=== PATIENT | female | born 1950 | race Native Hawaiian/Other Pacific Islander ===

== ENCOUNTER 2018-05-21 18:30 | Inpatient (IN) ==
[2018-05-21] MEDS ORDERED: TYLENOL PO ONE (19:00)
[2018-05-21] MEDS ORDERED: MORPHINE IV ONE (19:19)
[2018-05-21] MEDS ORDERED: ZOFRAN IV ONE (19:19)
[2018-05-21] MEDS ORDERED: NS 1,000 ML IV ONE ×3 (19:20→23:59)
[2018-05-21 19:21] LABS: BASO# 0.03 X1000 (0.0-0.2); BASO% 0.2 % (0.0-0.8); EOS# 0.01 X1000 (0.0-0.7); EOS% 0.1 % (0.0-10.0); HEMATOCRIT 37.4 % (37.0-47.0); HEMOGLOBIN 12.3 g/dL (12.0-16.0); IMM GRAN# 0.07 X1000 (0.0-0.04); IMM GRAN% 0.4 % (0.0-0.5); LYMPH# 1.75 X1000 (1.2-3.4); LYMPH% 8.8 % (20.5-51.1); MCH 27.2 PG (27-31); MCHC 32.9 g/dL (33-37); MCV 82.7 FL (81-99); MONO# 1.61 X1000 (0.11-0.59); MONO% 8.1 % (1.7-9.3); MPV 12.6 FL (7.4-10.4); NEUT# 16.32 X1000 (1.4-6.5); NEUT% 82.4 % (42.2-75.2); PLT 215 X1000 (130-400); RBC 4.52 XMIL (4.2-5.4); RDW 14.1 % (11.5-14.5); WBC 19.79 X1000 (4.8-10.8)
[2018-05-21 19:59] LABS: BILIRUBIN URINE NEGATIVE (NEGATIVE); BLOOD URINE 2+ (NEGATIVE); CLARITY CLEAR (CLEAR); COLOR YELLOW; KETONE URINE NEGATIVE (NEGATIVE); LEUKOCYTES URINE TRACE (NEGATIVE); NITRITE URINE NEGATIVE (NEGATIVE); PH URINE 6.5; UROBILINOGEN URINE NORMAL
[2018-05-21 20:01] LABS: URINE BACTERIA 1+ /HFP; URINE CAST NONE SEEN /LPF; URINE CRYSTAL NONE SEEN /HPF; URINE EPITHELIAL CELLS >10 /HPF (<10); URINE RBC <10 /HPF (<10); URINE SOURCE CLEAN CATCH; URINE WBC <10 /HPF (<10); URINE YEAST NONE SEEN /HPF
[2018-05-21 20:49] LABS: ALBUMIN 3.1 g/dL (3.5-5.0); CALCIUM 9.6 mg/dL (8.8-10.2); CREATININE 1.8 mg/dL (0.5-0.9); POTASSIUM 4.5 mmol/L (3.5-5.1); TOTAL BILIRUBIN 0.9 mg/dL (0.20-1.00); TOTAL PROTEIN 8.6 g/dL (6.3-8.3)
[2018-05-21] MEDS ORDERED: NS 1,000 ML IV SCH (23:45)
[2018-05-21] MEDS ORDERED: ZOFRAN IV PRN ×2 (23:54→23:58)
[2018-05-21] MEDS ORDERED: MORPHINE IV PRN (23:54)
[2018-05-21] MEDS ORDERED: ZOSYN 3.375 GM in NS 50 ML IV ONE (23:57)
[2018-05-21] MEDS ORDERED: TYLENOL PO PRN (23:57)
--- NOTE | 2018-05-22 00:04 | PROVIDER DOCUMENTATION ---
HPI-Abdominal Pain/GI Problem - General Chief Complaint: Abdominal Pain Stated Complaint: EXTREMITY PAIN Time Seen by Provider: 05/21/18 19:03 Source: patient Allergies/Adverse Reactions: Patient Allergies Allergy/AdvReac Type Severity Reaction Status Date / Time No Known Allergies Allergy Verified 05/21/18 20:18 Home Medications: Home Medication List Medication Instructions Recorded Confirmed Last Taken Type Docusate Sodium [Colace] 100 mg PO BID #60 capsule 09/23/14 05/21/18 Unknown Rx Insulin NPH Hum/Reg Insulin Hm 15 unit SQ DAILY 05/21/18 05/21/18 Unknown History [Novolin 70-30 100 Unit/ml Vial] Insulin NPH Hum/Reg Insulin Hm 18 unit SQ HS 05/21/18 05/21/18 Unknown History [Novolin 70-30 100 Unit/ml Vial] Lisinopril 20 mg PO DAILY 05/21/18 05/21/18 Unknown History - History of Present Illness-ABD Nature of Presenting Problems: Patient is a 68 yof who was sent by Dr. Dubois due to RLQ pain, fever, and leukocytosis. Pt states the pain and fever began 2 days ago. She denies n/v/d or any other symptoms and is non-toxic in appearance. Abdominal Pain Onset Location: reports: RLQ Pain Radiation: reports: no radiation Severity in ED: reports: moderate Onset/Duration: reports: 2 days ago Timing: reports: still present Activities at Onset: reports: none Modifying Factors: improves with: nothing Last BM: this morning Dark Stools Present?: reports: none noticed Rectal Bleeding: reports: none Rectal Pain: reports: none Recently seen or treated by another doctor?: Yes Review of Systems - Adult - REVIEW OF SYSTEMS - ADULT Constitutional: reports: fever Eyes: reports: no symptoms reported Ears, Nose, Mouth & Throat: reports: no symptoms reported Cardiovascular: reports: no symptoms reported Respiratory: reports: no symptoms reported Gastrointestinal: reports: abdominal pain. denies: diarrhea, nausea, vomiting Genitourinary: denies: dysuria, flank pain Musculoskeletal: reports: no symptoms reported Integumentary: reports: no symptoms reported Neurological: reports: no symptoms reported Psychiatric: reports: no symptoms reported Endocrine: reports: no symptoms reported Hematologic/Lymphatic: reports: no symptoms reported Allergic/Immunologic: reports: no symptoms reported All Other Systems: Reviewed and Negative Past History - Adult - PAST MEDICAL HISTORY-ADULT Review of Records: reports: Old Records Reviewed, Nursing Assessment Review, Medications Reviewed, Social history reviewed & non-contributory. Major Childhood Illnesses: reports: denies history Cardiovascular: reports: HTN Respiratory: reports: denies history Gastrointestinal: reports: denies history Obstetrical/Gynecological: reports: denies history Genitourinary: reports: ESRD Musculoskeletal: reports: denies history Neurological: reports: denies history Endocrine/Immune: reports: Diabetes, thyroid disorder Other Conditions: reports: denies history - PRIOR SURGERIES/PROCEDURES Surgical/Procedure History: reports: reviewed, not pertinent, cholecystectomy, C -section - IMMUNIZATION STATUS Childhood Immunizations: See Nurse Assessment Flu Vaccine: See Nurse Assessment - FAMILY HISTORY Family History: reviewed, not pertinent - SOCIAL HISTORY Smoking: non-smoker Physical Exam-General - PHYSICAL EXAM-ADULT Initial Vital Signs Reviewed: Yes - CONSTITUTIONAL General Appearance: alert, mild distress. negative: lethargic, slow to respond - EYES Eyes: pink conjunctivae - HEAD, EARS, NOSE, MOUTH & THROAT HENMT: normocephalic/atraumatic, moist mucous membranes - NECK Neck: non-tender, full range of motion, supple, normal inspection - RESPIRATORY Respiratory: chest non-tender, lungs clear, normal breath sounds, no pleuratic chest pain, no respiratory distress, no accessory muscle use - CARDIOVASCULAR Cardiovascular: normal peripheral pulses, regular rate, rhythm, no gallop, no murmur - GASTROINTESTINAL (ABDOMEN) Abdominal Exam: normal bowel sounds, soft, no organomegaly, tenderness (RLQ), McBurney's point tenderness. negative: distended, guarding, rigid, hernia, mass , hepatomegaly, spleenomegaly - MUSCULOSKELETAL Back Exam: normal inspection Extremity: normal range of motion, non-tender, normal gait, normal inspection - SKIN Integumentary: normal color, normal turgor, warm/dry. negative: cyanosis, diaphoresis, jaundice, mottled, pallor - NEUROLOGIC Neurologic: grossly normal, no motor/sensory deficits - PSYCHIATRIC Psych/Mental Status: normal mood/affect, normal thought content, normal thought process, oriented x 3 Progress - PLAN OF CARE/RESULTS Progress/Plan/Lab Results: Vital Signs - 8 hr 05/21/18 18:51 05/21/18 19:57 Temperature 100.7 F H 97.5 F L Pulse Rate 106 H 105 H Respiratory Rate 18 18 Blood Pressure 187/92 86/64 O2 Sat by Pulse Oximetry 96 93 L Laboratory Results - last 24 hr 05/21/18 05/21/18 05/21/18 19:04 19:10 19:10 WBC 19.79 H RBC 4.52 Hgb 12.3 Hct 37.4 MCV 82.7 MCH 27.2 MCHC 32.9 L RDW Std Deviation 14.1 Plt Count 215 MPV 12.6 H Immature Gran % (Auto) 0.4 Neut % (Auto) 82.4 H Lymph % (Auto) 8.8 L [place] % (Auto) 8.1 Eos % (Auto) 0.1 Baso % (Auto) 0.2 Immature Gran # (Auto) 0.07 H Neut # (Auto) 16.32 H Lymph # (Auto) 1.75 [place] # (Auto) 1.61 H Eos # (Auto) 0.01 Baso # (Auto) 0.03 Sodium 128 L Potassium 4.5 Chloride 93 L Carbon Dioxide 22 L Anion Gap 13 BUN 22 Creatinine 1.8 H Estimated GFR/1.73 m2 28 BUN/Creatinine Ratio 12 Glucose 249 H Calculated Osmolality 269 Calcium 9.6 Total Bilirubin 0.90 AST 234 H ALT 234 H Alkaline Phosphatase 162 H Total Protein 8.6 H Albumin 3.1 L Globulin 6.0 Albumin/Globulin Ratio 1.0 Urine Source CLEAN CATCH Urine Color YELLOW Urine Clarity CLEAR Urine pH 6.5 Ur Specific [place] 1.010 Urine Protein 3+(500 mg/dL) A Urine Ketones NEGATIVE Urine Blood 2+ A Urine Nitrite NEGATIVE Urine Bilirubin NEGATIVE Urine Urobilinogen NORMAL Urine Microscopic RBC <10 Urine WBC TRACE A Urine Microscopic WBC <10 Ur Epithelial Cells >10 A Urine Crystals NONE SEEN Urine Bacteria 1+ Urine Casts NONE SEEN Urine Yeast NONE SEEN Urine Glucose 1+(100 mg/dL) A Orders Category Date Time Status Admit - [facility] Routine AdmDCTranf 05/21/18 23:54 Active Activity - Bed Rest with BRP ORDERED Care 05/21/18 23:54 Active Resuscitation Status Routine Care 05/21/18 23:54 Ordered Vital Signs Order ROUTINE Care 05/21/18 23:54 Active NPO Diet 05/21/18 23:[address] ABDOMEN/PELVIS W/O CONTRAST [CT] Stat Exams 05/21/18 21:25 Taken US ABDOMEN-COMPLETE [US] Stat Exams 05/21/18 23:54 Ordered BLOOD CULTURE [BLDCUL] Stat Lab 05/21/18 23:56 Uncollected CBC WITH DIFF [HEME] Stat Lab 05/21/18 19:10 Completed COMPREHENSIVE METABOLIC PANEL [CHEM] Stat Lab 05/21/18 19:[address] W/POSS RFLX CULT [URINALYSIS] Stat Lab 05/21/18 19:04 Completed URINE CULTURE [RM] Routine Lab 05/21/18 20:01 Received 0.9% Sodium Chloride Inj [Ns] 1,000 ml Med 05/21/18 23:54 Active IV 100 mls/hr 0.9% Sodium Chloride Inj [Ns] 1,000 ml Med 05/21/18 23:45 Active IV 125 mls/hr 0.9% Sodium Chloride Inj [Ns] 1,000 ml Med 05/21/18 19:20 Discontinued IV 999 mls/hr 0.9% Sodium Chloride Inj [Ns] 1,000 ml Med 05/21/18 23:59 Active IV 999 mls/hr Acetaminophen [Tylenol] Med 05/21/18 19:00 Discontinued 1,000 mg PO NOW ONE Acetaminophen [Tylenol] Med 05/21/18 23:57 Active 650 mg PO Q4H PRN PRN Insulin Lispro (Griffith) [Humalog (Griffith)] Med 05/22/18 07:00 Active See Protocol SUBQ 0700,1100,1600,2100 Morphine Med 05/21/18 19:19 Discontinued 4 mg IV NOW ONE Morphine Med 05/21/18 23:54 Active 4 mg IV Q3H PRN PRN Ondansetron [Zofran] Med 05/21/18 19:19 Discontinued 4 mg IV NOW ONE Ondansetron [Zofran] Med 05/21/18 23:58 Active 4 mg IV Q4H PRN PRN Ondansetron [Zofran] Med 05/21/18 23:54 Active 4 mg IV Q6H PRN PRN Piperacillin/Tazobactam [Zosyn] 3.375 gm Med 05/21/18 23:57 Stop Req 0.9% Sodium Chloride Inj [Ns] 50 ml IV NOW Piperacillin/Tazobactam [Zosyn] 3.375 gm Med 05/21/18 23:45 Active 0.9% Sodium Chloride Inj [Ns] 50 ml IV Q6H Transfer/Admit Order [TRANSFER] Routine Transfer 05/22/18 00:[address] Dumas and discussed pt case- md states to transfer to [facility] and he will see her in the am. Also states to admit to [facility] for medical management. Spoke with Dr. Haines regarding pt case and admission- md accepted admission and states he will place orders. Pt aware of this plan and is in agreement. NAD noted at this time. Result Diagrams: 05/21/18 19:10 05/21/18 19:10 Departure - Departure Date of Disposition Decision: 05/22/18 Time of Disposition Decision: 00:21 DIAGNOSIS: Abdominal pain Qualifiers: Abdominal location: right lower quadrant Qualified Code(s): R10.31 - Right lower quadrant pain Leukocytosis Qualifiers: Leukocytosis type: other Qualified Code(s): D72.828 - Other elevated white blood cell count Disposition: ADMITTED INPATIENT 09 Certified Medical Emergency: Emergent Condition: Stable Referrals and Follow-Ups: None,PCP [Primary Care Provider] - - Critical Care Note This patient required my direct & personal management of CC.: No Attestation - Physician/ YUE Attestation Patient care was provided by Advanced Practice Provider:: Yes Advanced Practice Provider:: Patrizia Reddy Advanced Practice Provider documentation review:: The Mid-level provider documentation, treatment plan and medical decision making was reviewed by the physician who agrees with all treatment and medical decision making by the MLP. The physician spent face to face time with patient:: No Advanced Practice Provider documentation review:: Supervising physician onsite and consulted in the evaluation and care of this patient. The physician did not have a face to face encounter with the patient.
[2018-05-22] MEDS: ZOSYN 3.375 GM in NS 50 ML IV SCH ×2 (00:30→06:22)
[2018-05-22 05:23] LABS: HEMOGLOBIN A1C 8.7 % (4.8-6.0)
[2018-05-22] MEDS ORDERED: APRESOLINE IV PRN (05:23)
[2018-05-22 06:01] LABS: BASO# 0.01 X1000 (0.0-0.2); BASO% 0.1 % (0.0-0.8); EOS# 0.01 X1000 (0.0-0.7); EOS% 0.1 % (0.0-10.0); HEMATOCRIT 33.1 % (37.0-47.0); HEMOGLOBIN 10.8 g/dL (12.0-16.0); IMM GRAN# 0.02 X1000 (0.0-0.04); IMM GRAN% 0.2 % (0.0-0.5); LYMPH# 0.69 X1000 (1.2-3.4); LYMPH% 6.7 % (20.5-51.1); MCH 27.1 PG (27-31); MCHC 32.6 g/dL (33-37); MONO# 0.25 X1000 (0.11-0.59); MONO% 2.4 % (1.7-9.3); MPV 13.2 FL (7.4-10.4); NEUT# 9.39 X1000 (1.4-6.5); NEUT% 90.5 % (42.2-75.2); PLT 136 X1000 (130-400); RBC 3.99 XMIL (4.2-5.4); RDW 13.9 % (11.5-14.5); WBC 10.37 X1000 (4.8-10.8)
--- NOTE | 2018-05-22 06:18 | HISTORY AND PHYSICAL ---
PRIMARY CARE PHYSICIAN: Dr. Dubois.t CHIEF COMPLAINT: Abdominal pain. HISTORY OF PRESENT ILLNESS: This is a 68-year-old female with a past medical history diabetes and hypertension, who was sent by her primary care doctor Dr. Dubois because of abdominal pain and fever. She denies any chest pain, shortness of breath, fever. The patient reports that during the last 3 days she is having fevers, she did not check it but she was taking Tylenol for it, and also abdominal pain in the right lower quadrant that was getting worse progressively. That pain is intermittent, when she is having pain it is 7-8/10 in intensity. There has not been any alleviating or aggravating factors. The pain is colicky in nature. The patient reports not feeling sick. No vomiting. No change in appetite. The patient also denies any dysuria. Dr. Dumas from General Surgery has been notified in the ER because apparently the CT of the abdomen showed possible short segment of the appendix may be present, so we were suspecting acute appendicitis and that is the reason why this patient has been transferred over here. Upon my examination this patient is not looking sick and not in pain at this time. PAST MEDICAL HISTORY: 1. Diabetes mellitus type 2 diagnosed approximately 10 years ago. The patient is on insulin. 2. Hypertension. PAST SURGICAL HISTORY: 1. 35 years ago. 2. Episode of acute renal failure. 3. Gallbladder removed 3 years ago. 4. Ear surgery several years ago. ALLERGIES: No known drug allergies. SOCIAL HISTORY: She denies drinking alcohol, smoking tobacco, or using illicit drugs. The patient lives with , son and his . REVIEW OF SYSTEMS: Eleven systems were reviewed and all symptoms are related to H and P. PHYSICAL EXAMINATION: VITAL SIGNS: Temperature 97.4 degrees, heart rate 62, respiratory rate 20, blood pressure 150/69, O2 saturation 97% on room air. GENERAL: This is a 68-year-old female lying in bed in no acute distress. HEENT: Head is normocephalic and atraumatic. Pupils are equal, round, and reactive to light and accommodation. Normal conjunctivae. Anicteric NECK: No JVD noted. No carotid bruits. No lymphadenopathy. No thyromegaly. CARDIOVASCULAR: S1 and S2 heard. No murmurs, gallops, or rubs. Regular rate and rhythm. RESPIRATORY: Clear bilaterally to auscultation. No work of breathing or using accessory muscles. ABDOMEN: Soft. Mildly tender to palpation in the right lower quadrant. There is no signs of peritoneal irritation. No organomegaly noted. EXTREMITIES: No clubbing, cyanosis, or edema. Peripheral pulses present in both legs. NEUROLOGICAL: The patient is alert and oriented x3. Moves all 4 extremities. LABORATORY DATA: White cell count 19.79, with normal hemoglobin 12.3, platelets 215,000. Sodium 128, creatinine 1.8, AST 234, ALT 234, alkaline phosphatase 162. Urinalysis noted with glucose but no nitrates. ASSESSMENT AND PLAN: 1. Abdominal pain. That is the reason why this patient has been transferred over here. The CT of the abdomen showed possible appendicitis although we are not completely sure and that is why we have consulted Dr. Dumas and we are awaiting his evaluation. 2. Diabetes mellitus type 2. We are going to check hemoglobin A1c. We are going to hold her insulin, she uses insulin NPH Novolin 70/30 while she is here. 3. Hypertension. Blood pressure is elevated and she is on lisinopril, at this point I will change her medications to Amlodipine 5 mg p.o. b.i.d. and we ill place her on hydralazine p.r.n. We will continue to monitor vitals every 6 hours. 4. Chronic kidney disease. We have checked that in 2013 she had an episode of acute renal failure. Last creatinine checked at that time was 3.5. I do not know how her creatinine has been in the office, but we have 1.8 today, and I think this is chronic. We will continue to monitor her basic metabolic panel daily. 5. Hyponatremia. We have noticed that the patient had been hyponatremic also in 2013, I do not know her baseline sodium. We are going to use urine studies and we will check osmolality, and we will continue checking BMP daily. We may need to consult Nephrology down the road, but at this point we will continue to monitor BMP daily. 6. Transaminitis. At this point the source of this problem is unclear to me. We are going to consult Gastroenterology. 7. Recommendations to follow according to the clinical situation of the patient. cc: Charles Castellanos MD
[2018-05-22] MEDS ORDERED: MORPHINE IV PRN ×2 (06:28→17:50)
[2018-05-22] MEDS ORDERED: TYLENOL PO PRN (06:29)
[2018-05-22] MEDS ORDERED: ZOFRAN IV PRN (06:29)
--- NOTE | 2018-05-22 06:40 | Diag Imaging Result Doc PS360 ---
CT ABDOMEN/PELVIS W/O CONTRAST - 05/21/2018 INDICATION: RLQ pain/tenderness COMPARISON: 03/19/2017 FINDINGS: There are cholecystectomy clips. Stable severe left renal atrophy. No radiodense renal stones. No hydronephrosis or hydroureter. Stable phlebolith near the left UVJ. No bowel obstruction or inflammation. Appendix is not clearly visible. Urinary bladder, uterus, ovaries, and rectum are normal. There are moderate degenerative changes of the spine. No acute or suspicious bony lesion. IMPRESSION: No acute disease or change from prior. This exam was performed using automated exposure control, adjustment of mA or kV according to patient size, and/or use of iterative reconstruction technique Electronically signed by Markos Bravo 05/22/2018 6:37 AM
[2018-05-22 06:43] LABS: LYMPHS 9 % (21-51); MONO 3 % (1-9); SEGS 88 % (42-75)
[2018-05-22] MEDS: NS 1,000 ML IV SCH ×2 (06:44→18:47)
[2018-05-22] MEDS ORDERED: HUMALOG (PARKWAY) SUBQ SCH (07:00)
[2018-05-22] MEDS ORDERED: HUMALOG SUBQ SCH (07:00)
[2018-05-22 07:14] LABS: CALCIUM 8.5 mg/dL (8.8-10.2); CREATININE 1.7 mg/dL (0.5-0.9); POTASSIUM 5.2 mmol/L (3.5-5.1)
--- NOTE | 2018-05-22 07:33 | GENERAL SURGERY CONSULTATION ---
DATE: 05/22/2018 REQUESTING PHYSICIAN: Emergency Department consult concerning rule out appendicitis. HISTORY OF PRESENT ILLNESS: A 68-year-old female initially presenting after being in Dr. Dubois's office for evaluation of right lower quadrant pain in the right lower quadrant for 3 days. She describes it as being right lower quadrant right flank and even extending up to her right neck. She describes that she has never had this pain before. Dr. Dubois evaluated the patient, thought she needed to come to the emergency department. She had a CT scan that did not clearly show appendicitis, but there was some mild concern. She did have a leukocytosis of 19,000. The patient currently says her pain is much improved with her pain medicine. I was asked to evaluate the patient for an opinion. PAST MEDICAL HISTORY: 1. Diabetes. 2. Hypertension. 3. Thyroid disease. PAST SURGICAL: Cholecystectomy . SOCIAL HISTORY: Nonsmoker. FAMILY HISTORY: Reviewed with the patient and noncontributory. ALLERGIES: None. HOME MEDICATIONS: 1. Colace. 2. Insulin. 3. Lisinopril. REVIEW OF SYSTEMS: A full 10 point review of systems obtained, negative as specified in HPI. Physical. PHYSICAL EXAMINATION: Vital Signs: Patient is currently afebrile. Temperature 97.4 degrees, pulse 62, blood pressure 152/69. General: No acute distress. Female looks stated age resting comfortably. HEENT: Normocephalic, atraumatic. Pupils equal, round, reactive to light. Mucous membranes moist. Oropharynx benign. Neck: Supple. Trachea midline. Cardiovascular: Regular rate and rhythm. Lungs: Grossly clear. Abdomen: Only some minimal discomfort and soreness in the right lower quadrant. No peritoneal signs. Negative Rovsing's signs. No tenderness at McBurney's point. No peritoneal signs. Extremities: Moves all extremities. Neurologic: Grossly intact. Skin: No signs of jaundice. Vascular: All extremities perfused. LABORATORY: White blood cell count this morning is 10 which is down from 19, hematocrit is 33, platelet count 136,000. Imaging reviewed and noted above. CT scan does not seem to convincingly showed appendicitis. ASSESSMENT/PLAN: A 68-year-old with right lower quadrant pain and leukocytosis. 1. Right lower quadrant pain and leukocytosis. At this time, patient's leukocytosis is improved from 19 to 10. Her story does not sound classic for appendicitis. Her CT scan is not convincing. I had a lengthy discussion with the patient. I did offer a diagnostic laparoscopy and appendectomy, but at this time given the fact that she is not hurting and she does not think it is an appendix, we will hold off. I told her if anything changes, we could reassess and consider getting her appendix out, but at this time, we will continue supportive care and monitor her closely. I appreciate the consult. cc: Rey Dumas MD
--- NOTE | 2018-05-22 08:41 | Diag Imaging Result Doc PS360 ---
EXAM: US ABDOMEN-COMPLETE HISTORY: abdominal pain TECHNIQUE: Abdominal ultrasound COMPARISON: CT from 05/21/2018 FINDINGS: Normal pancreas. Normal aorta and inferior vena cava. The gallbladder has been removed. There is a 3.4 cm hypoechoic lesion in the right lobe of the liver. The kidneys are small. No hydronephrosis. The common bile duct measures 5 mm. No ascites. The spleen measures 12.9 cm in length. IMPRESSION: 1.Cholecystectomy 2.Nonspecific hypodense lesion/mass in the right lobe of the liver 3.Small kidneys with cortical thinning on the left Electronically signed by Jose Garza 05/22/2018 8:39 AM
[2018-05-22] MEDS: NORVASC PO SCH ×2 (08:47→21:04)
[2018-05-22] MEDS ORDERED: HUMULIN 70/30 SUBQ SCH ×3 (10:30→21:00)
[2018-05-22 11:34] LABS: ALB/GLOB RATIO 0.7; DIRECT BILIRUBIN 0.2 mg/dL (0.00-0.20); TOTAL BILIRUBIN 0.65 mg/dL (0.20-1.00); TOTAL PROTEIN 7.5 g/dL (6.3-8.3)
[2018-05-22] MEDS ORDERED: INSULIN PEN NEEDLES ONE (12:21)
[2018-05-22] MEDS ORDERED: ZOSYN 3.375 GM in NS 50 ML IV SCH (12:30)
[2018-05-22] MEDS ORDERED: SODIUM CHLORIDE 0.9% INJ SCH (13:45)
--- NOTE | 2018-05-22 14:03 | PROGRESS NOTE ---
DATE: 05/22/2018 SUBJECTIVE: The patient is resting comfortably in bed. She complains of right lower quadrant pain that radiates to the right flank region. She denies having any nausea, vomiting, or diarrhea. She does state that she is hungry. She states that she had a fever several days ago. OBJECTIVE: Vital signs: Temperature 97.3, blood pressure 169/76, heart rate 65 , respirations 16, O2 saturation 98% on room air. General: This is an elderly female lying in bed , in no acute distress. Heart: S1, S2 normal. Regular rate and rhythm. Lungs: Clear to auscultation bilaterally. No wheezing, no rales, no rhonchi. Abdomen with positive bowel sounds. Soft, nontender, nondistended. Extremities: No edema. No cyanosis, no calf tenderness. Neurologic: The patient is alert and oriented x3. DIAGNOSTIC DATA: Sodium is 135, potassium 5.2, chloride 104, CO2 is 16, BUN is 28, creatinine 1.7, glucose 343. AST is 99, ALT is 154, alkaline phosphatase 121. Calcium 8.5. Hemoglobin 10, hematocrit 33, platelets 136, white blood cell count 10. Abdominal ultrasound shows nonspecific hypodense lesion or mass in the right lobe of the liver. CT of the abdomen and pelvis shows no acute disease. ASSESSMENT AND PLAN: 1. Abdominal pain. The patient has been seen by the general surgeon. We will continue to monitor the patient on IV fluids and antibiotics. We will start the patient on a diet. 2. Elevated liver enzymes with liver mass or nodules. We will check a hepatitis profile and consult with GI. 3. Chronic kidney disease. Will hold the lisinopril and monitor the renal function closely. 4. Uncontrolled insulin dependent diabetes mellitus. Will increase the long acting insulin dosage. 5. Metabolic acidosis. We will monitor the patient's acid base status closely. 6. Mild hyperkalemia. We will repeat the potassium this afternoon. Hold the lisinopril. 7. Hypertension. We will restart the Norvasc. 8. GI prophylaxis. We will start the patient on Protonix. 9. DVT prophylaxis. We will start the patient on SCDs. cc: MD MADELEINE Masters
[2018-05-22 14:50] LABS: CALCIUM 9.2 mg/dL (8.8-10.2); POTASSIUM 4.8 mmol/L (3.5-5.1)
[2018-05-22] MEDS ORDERED: HUMULIN R SUBQ SCH (16:00)
[2018-05-22] MEDS: HUMULIN R SUBQ SCH ×2 (16:47→21:05)
[2018-05-22] MEDS ORDERED: ZOSYN 2.25 GM in NS 50 ML IV SCH (18:00)
[2018-05-22 18:51] LABS: UR CREAT RANDOM 47.8 mg/dL (11-20); UR PROT RANDOM 102.5 mg/dL
[2018-05-22] MEDS: ZOSYN 2.25 GM in NS 50 ML IV SCH (19:02)
[2018-05-22] MEDS: HUMULIN 70/30 SUBQ SCH (19:04)
[2018-05-22] MEDS: MIRALAX PO SCH (21:05)
[2018-05-22] MEDS: COLACE PO SCH (21:06)
[2018-05-23] MEDS: ZOSYN 2.25 GM in NS 50 ML IV SCH ×3 (01:15→17:51)
--- NOTE | 2018-05-23 02:36 | CONSULTATION ---
DATE OF CONSULTATION: 05/22/2018 REASON FOR CONSULTATION: Abdominal pain, CT scan showing liver mass, elevated liver function tests. HISTORY OF PRESENT ILLNESS: This is a 68-year-old female. She is originally from [facility]. She has been here in the [facility] for 12 years. She has reported onset of abdominal pain over the last 4 days. She states it was worse if she coughed or moved. She did report a fever. She had denied nausea or vomiting. No reported constipation or diarrhea. No reported blood in the stool or black stools. No reported chills. She has been seen by [facility] and evaluated for possible appendicitis. CT scan of the abdomen and pelvis showed a history of cholecystectomy, left renal atrophy. The appendix was not clearly visible. On an ultrasound of the abdomen, findings showed a history of cholecystectomy, a 3.4 cm hypoechoic lesion in the right lobe of the liver. On admission, the patient's liver function tests were total bilirubin 0.90, AST 234, ALT 234, alkaline phosphatase 162. Today, her liver enzymes have improved some. AST 99, ALT 154, alkaline phosphatase 121. The patient has never been told she had liver problems. She denies any history of hepatitis. PAST MEDICAL HISTORY: Diabetes type 2, hypertension. PAST SURGICAL HISTORY: , history of acute renal failure. The patient reports renal failure after a cholecystectomy approximately 3 years ago. She had to be on dialysis for a short period of time. Cholecystectomy approximately 3 years ago. Ear surgery. ALLERGIES: No known drug allergies. HOME MEDICATIONS: Colace 100 mg twice a day. Novolin 70/30, 15 units daily, and 18 units at night. Lisinopril 20 mg daily. SOCIAL HISTORY: She denies alcohol or tobacco use. She is . She has 1 son. REVIEW OF SYSTEMS: Per history of present illness. PHYSICAL EXAMINATION: Vital Signs: Temperature 97.3 degrees, pulse 65, respirations 16, blood pressure 169/76. General: The patient is awake and alert. No acute distress. She is sitting up in the bed. HEENT: Normocephalic, atraumatic. Pupils equal, round, reactive to light. Sclerae nonicteric. Respiratory: Lung sounds clear bilaterally. Cardiovascular: Regular rate and rhythm. Abdomen: Soft. Positive bowel sounds. Extremities: No lower extremity edema noted. DIAGNOSTIC RESULTS: Laboratory: Hematology: WBC 10.37, hemoglobin 10.8, hematocrit 33.1, MCV 83.0, platelets 136,000. Chemistry: Sodium 135, potassium 5.2, chloride 104, CO2 16, BUN 28, creatinine 1.7, glucose 343. Total bilirubin 0.65, AST 99, ALT 154, alkaline phosphatase 121. ASSESSMENT AND PLAN: 1. Abdominal pain. Patient has been evaluated by [facility]. No plan for surgery at present time. 2. Ultrasound showing a hypoechoic liver mass, measuring. 3.4 cm in the right lobe of the liver. 3. Elevated liver enzymes. Waiting on hepatitis profile, and will also add iron studies and KINDRA. Will get alpha fetoprotein and CEA. 4. Diabetes, hypertension. Further plans to be made according to other workup, including lab work. Patient will need a colonoscopy due to finding of a liver mass. We can schedule that next week at some time. We will continue to follow during her progress, and further plans will be made as needed. I have discussed this case with Dr. Huang. Thank you for this consultation. Dictated by HANNAH Dunham for Ru Huang MD cc: HANNAH Bazzi MD
[2018-05-23] MEDS: HUMULIN 70/30 SUBQ SCH ×3 (03:50→21:08)
[2018-05-23] MEDS: NS 1,000 ML IV SCH ×2 (04:22→14:13)
[2018-05-23] MEDS: HUMULIN R SUBQ SCH ×4 (06:20→21:08)
[2018-05-23] MEDS: PROTONIX IV SCH (06:20)
[2018-05-23 06:56] LABS: BASO# 0.01 X1000 (0.0-0.2); BASO% 0.1 % (0.0-0.8); HEMATOCRIT 31.3 % (37.0-47.0); HEMOGLOBIN 10.3 g/dL (12.0-16.0); IMM GRAN# 0.06 X1000 (0.0-0.04); IMM GRAN% 0.3 % (0.0-0.5); LYMPH# 0.98 X1000 (1.2-3.4); MCH 27.6 PG (27-31); MCHC 32.9 g/dL (33-37); MCV 83.9 FL (81-99); MONO# 0.67 X1000 (0.11-0.59); MONO% 3.4 % (1.7-9.3); MPV 13.3 FL (7.4-10.4); NEUT# 17.71 X1000 (1.4-6.5); NEUT% 91.2 % (42.2-75.2); PLT 154 X1000 (130-400); RBC 3.73 XMIL (4.2-5.4); RDW 14.2 % (11.5-14.5); WBC 19.43 X1000 (4.8-10.8)
[2018-05-23 07:21] LABS: ALB/GLOB RATIO 0.7; ALBUMIN 2.6 g/dL (3.5-5.0); CALCIUM 8.7 mg/dL (8.8-10.2); LYMPHS 6 % (21-51); MONO 10 % (1-9); POTASSIUM 4.6 mmol/L (3.5-5.1); SEGS 84 % (42-75); TOTAL BILIRUBIN 0.29 mg/dL (0.20-1.00); TOTAL PROTEIN 6.5 g/dL (6.3-8.3)
[2018-05-23 07:41] LABS: IRON SATURATION 21 %; TIBC 160 ug/dL; TOTAL IRON 34 ug/dL (49-151); UNBOUND IRON 126 ug/dL (112-346)
[2018-05-23] MEDS: COLACE PO SCH ×2 (08:18→21:07)
[2018-05-23] MEDS: MIRALAX PO SCH ×2 (08:19→21:09)
[2018-05-23] MEDS: NORVASC PO SCH ×2 (08:20→21:07)
--- NOTE | 2018-05-23 09:43 | GENERAL SURGERY PROGRESS NOTE ---
DATE: 05/23/2018 SUBJECTIVE: The patient denies abdominal pain except when she pushes on the right side of her abdomen. She is eating some without nausea or vomiting. No fever or chills. OBJECTIVE: She is afebrile. Vital signs are stable. General: She is awake, alert, oriented x3 in no acute distress. GI: Soft, nondistended. Minimally tender in the right lower abdomen. No rebound or guarding. LABORATORY: White blood cell count 19,000. Hemoglobin 10, hematocrit 31, platelet count 154,000. 91% neutrophils. Metabolic profile reviewed and notable for BUN of 42, creatinine 2.0, AST 50, ALT 101, alkaline phosphatase 106, total bilirubin 0.29. ASSESSMENT AND PLAN: A 68-year-old female with vague right-sided abdominal and back pain and leukocytosis of unclear etiology. Her initial CT scan did not show any apparent appendicitis or other inflammatory abnormality. There is a low-density lesion in the liver which has been present for over a year on CT scan. Given the minimal degree of symptoms, I would not recommend proceeding with appendectomy at this time. I would consider treat her conservatively with a course of antibiotics. I think Dr. Huang is planning further workup of her elevated liver enzymes and liver mass and a future colonoscopy which I would agree with. She has ongoing acute kidney injury at this time as well. cc: Dominick Cole MD
[2018-05-23 13:45] LABS: HEPATITIS PROFILE ACUTE SEE COMMENTS
--- NOTE | 2018-05-23 13:56 | PROGRESS NOTE ---
DATE: 05/23/2018 SUBJECTIVE: The patient is resting comfortably in bed. She states that she feels a little bit better, but she is still complaining of some right lower quadrant pain. She has not had a bowel movement yet. OBJECTIVE: Vital Signs: Temperature 98, blood pressure 130/57, heart rate 66, respirations 18, O2 sat 100% on room air. General: This is an elderly female sitting at the edge of the bed in no acute distress. Heart: S1, S2 normal. Regular rate and rhythm. Lungs: Clear to auscultation bilaterally. No wheezing. No rales. No rhonchi. Abdomen: Positive. Bowel sounds soft. Mild tenderness in the right upper quadrant. Extremities: No edema. No cyanosis. No calf tenderness. Neurologic : The patient is alert and oriented x3. LABORATORY DATA: White blood cell count 19, hemoglobin 10, hematocrit 31, platelets 154,000. Sodium 136, potassium 4.6, chloride 106, CO2 of 18. BUN 42, creatinine 2, glucose 137, calcium 8.7, AST 50, ALT 101, alkaline phosphatase 106, albumin 2.6. ASSESSMENT AND PLAN: 1. Abdominal pain. The patient states that her abdominal pain has improved. She has not had a bowel movement yet. We will start scheduled laxative therapy. GI is also following as well as General Surgery. 2. Liver mass. The patient's liver function tests are improved today. An AFP is currently pending. GI is following. 3. Chronic kidney disease. Stable. 4. Leukocytosis. The patient is currently on Zosyn; however, her white count is back up to 19,000 today. Also, the inflammatory markers are markedly elevated. We will consult Infectious Disease. We will continue on antibiotic therapy at this time. The patient's blood and urine cultures are negative at this time. 5. Insulin dependent diabetes mellitus. Continue on insulin therapy. 6. Iron deficiency anemia. The hemoglobin and hematocrit are stable. 7. Gastrointestinal prophylaxis. The patient is on Protonix. 8. Deep vein thrombosis prophylaxis. The patient is on sequential compression devices. cc: MD MADELEINE Masters
[2018-05-23] MEDS: LACTULOSE PO SCH ×2 (14:14→21:09)
--- NOTE | 2018-05-23 14:16 | PROGRESS NOTE ---
DATE: 05/23/2018 SUBJECTIVE: Patient is sitting up in a chair. She had just eaten lunch. She reports some right quadrant pain more on the flank area but it has improved some. OBJECTIVE: Vital Signs: Temperature 98 degrees, pulse 66, respirations 18, blood pressure 138/57. General: Patient is awake, alert, no acute distress. She is sitting up on the side of the bed. LABORATORY: Hematology. WBC 19.43, hemoglobin 10.3, hematocrit 31.3, platelets 154,000. Chemistry. Sodium 136, potassium 4.6, chloride 106, CO2 18, BUN 42, creatinine 2.0, glucose 134, total bilirubin 0.29, AST 50, ALT 101, alkaline phosphatase 106. Iron studies showed iron 34, TIBC 160, percent saturation 21, ferritin 461. CEA was 4.7. ASSESSMENT AND PLAN: 1. Abdominal pain. 2. Elevated liver enzymes. 3. Liver mass/nodule. Looking back on her records, she did have noted area on her liver since 2013. At that time. It was 1.1 cm. We have ordered a CEA which was mildly elevated. Awaiting alpha fetoprotein and hepatitis profile. Her liver enzymes have had some improvement today. 4. Chronic kidney disease. Patient has been seen by nephrology. OTHER MEDICAL PROBLEMS: Diabetes, hypertension. Continue current management. Continue antibiotics. She is also being followed by [facility]. I have discussed this case with Dr. Huang. Further plans will be made according to findings. She may need colonoscopy but I do believe she has had a colonoscopy within the last several years by Dr. Barnard. Further plans to be made as needed. Dictated by HANNAH Dunham for Ru Huang MD cc: HANNAH Bazzi MD
--- NOTE | 2018-05-23 15:35 | Diag Imaging Result Doc PS360 ---
CHEST-PORTABLE - 05/23/2018 INDICATION: dyspnea COMPARISON: 03/19/2017 FINDINGS: Lung volumes are much lower. No focal infiltrates, pneumothorax, or pleural effusion. Heart size is normal. IMPRESSION: Low lung volumes. Electronically signed by Markos Bravo 05/23/2018 3:32 PM
--- NOTE | 2018-05-23 15:55 | NEPHROLOGY CONSULTATION ---
DATE: 05/23/2018 REASON FOR CONSULTATION: Chronic kidney disease. HISTORY OF PRESENT ILLNESS: Ms. Radha Hinkle is a 68-year-old woman who is well known to me. She has chronic kidney disease secondary to diabetes and her renal function has been stable over time and we follow her regularly in the office. She did have an episode of acute kidney injury several years ago with maximum creatinine of approximately 7 but she avoided dialysis. She came to the hospital because she was referred by Dr. Dubois. She had right lower quadrant abdominal pain. This was assessed by CT without contrast and surgical and GI consults. There was concern for appendicitis but her CT was negative. She did have leukocytosis however. This morning, she is pain-free. No nausea, vomiting or shortness of breath. Normal bowel function. I was asked to see her because she was concerned about her kidney function in the context of other testing. PAST MEDICAL HISTORY: As above. HOME MEDICATIONS: Include insulin, docusate, lisinopril. ALLERGIES: None. SOCIAL HISTORY: She is . No alcohol or tobacco. FAMILY HISTORY: Otherwise noncontributory. REVIEW OF SYSTEMS: Otherwise negative. PHYSICAL EXAMINATION: Vital Signs: Blood pressure 154/63, heart rate 60, respirations 16, afebrile. General: No acute distress. Skin: Warm and dry. HEENT: Conjunctivae are pink. Neck veins are not distended. Oropharynx is clear. Normal tongue. Normal teeth. Heart: PMI is nondisplaced. Regular rate and rhythm without murmurs, rubs, or gallops. Lungs: Have equal breath sounds. No crackles or wheezes. Abdomen: Soft, nontender. Bowel sounds are present. Extremities: Have no edema, clubbing, or cyanosis. IMPRESSION: Chronic kidney disease stage 3B. Stable and at her historical baseline. Secondary to diabetes. Electrolytes and acid-base are acceptable though she does have a non gap acidosis. I have nothing to add with regard to her acute pain syndrome. Her antibiotics are dosed appropriately. Avoid contrast if possible. cc: Dani Zafar MD
[2018-05-24] MEDS: ZOSYN 2.25 GM in NS 50 ML IV SCH ×4 (02:05→19:19)
[2018-05-24] MEDS: NS 1,000 ML IV SCH (02:05)
[2018-05-24] MEDS: HUMULIN R SUBQ SCH ×4 (06:15→22:20)
[2018-05-24] MEDS: PROTONIX IV SCH (06:16)
[2018-05-24 06:52] LABS: BASO# 0.01 X1000 (0.0-0.2); BASO% 0.1 % (0.0-0.8); EOS# 0.01 X1000 (0.0-0.7); EOS% 0.1 % (0.0-10.0); HEMATOCRIT 34.2 % (37.0-47.0); HEMOGLOBIN 11.1 g/dL (12.0-16.0); IMM GRAN# 0.05 X1000 (0.0-0.04); IMM GRAN% 0.3 % (0.0-0.5); LYMPH% 13.8 % (20.5-51.1); MCH 26.9 PG (27-31); MCHC 32.5 g/dL (33-37); MONO# 1.44 X1000 (0.11-0.59); MONO% 7.4 % (1.7-9.3); MPV 12.8 FL (7.4-10.4); NEUT# 15.31 X1000 (1.4-6.5); NEUT% 78.3 % (42.2-75.2); PLT 273 X1000 (130-400); RBC 4.12 XMIL (4.2-5.4); RDW 14.2 % (11.5-14.5); WBC 19.52 X1000 (4.8-10.8)
[2018-05-24 07:18] LABS: ALB/GLOB RATIO 0.7; ALBUMIN 2.8 g/dL (3.5-5.0); CALCIUM 8.8 mg/dL (8.8-10.2); CREATININE 2.1 mg/dL (0.5-0.9); POTASSIUM 4.5 mmol/L (3.5-5.1); TOTAL BILIRUBIN 0.28 mg/dL (0.20-1.00); TOTAL PROTEIN 7.1 g/dL (6.3-8.3)
[2018-05-24] MEDS: COLACE PO SCH ×2 (08:22→22:29)
[2018-05-24] MEDS: NORVASC PO SCH ×2 (08:22→22:29)
[2018-05-24] MEDS: MIRALAX PO SCH ×2 (08:22→22:30)
[2018-05-24] MEDS: LACTULOSE PO SCH ×2 (08:24→22:30)
[2018-05-24] MEDS: HUMULIN 70/30 SUBQ SCH (08:25)
--- NOTE | 2018-05-24 09:16 | GENERAL SURGERY PROGRESS NOTE ---
DATE: 05/24/2018 SUBJECTIVE: The patient reports continued episodes of right-sided abdominal, back, and flank pain. She does not have nausea or vomiting. No fever or chills. OBJECTIVE: Vital Signs: She is afebrile. Vital signs are stable. General: She is awake, alert, and oriented x4. No acute distress. Gastrointestinal: Soft, nondistended, but she is tender to deep palpation in the right lower quadrant. No rebound or guarding. Laboratory: White blood cell count 19,000. ASSESSMENT AND PLAN: A 68-year-old female with persistent right-sided abdominal and back pain with leukocytosis of unclear etiology and a known chronic liver mass. I am going to make her nothing per oral and recheck her symptoms and exam mid day. If she continues to have persistent pain, then I think we cannot rule out appendicitis without laparoscopy, which I would do later this afternoon. If we do proceed with laparoscopy, we will also do a liver biopsy. cc: Dominick Cole MD
--- NOTE | 2018-05-24 10:27 | PROGRESS NOTE ---
DATE: 05/24/2018 SUBJECTIVE: The patient continues to complain of vague right upper quadrant abdominal pain. She now complains of severe pain in her right shoulder. She states that in the past , she has had steroid injections to her shoulder. OBJECTIVE: Vital Signs: Temperature 99.2 degrees, blood pressure 164/64, heart rate 84, respirations 16, O2 saturations 97% on room air. General: This is an elderly female sitting at the edge of the bed in no acute distress. Head: Normocephalic, atraumatic. Heart: S1, S2 normal. Regular rate and rhythm. No murmurs. Lungs: Equal air entry bilaterally. No wheezing. No rales. No rhonchi. Abdomen: Positive bowel sounds. Soft. Mild tenderness in the right upper quadrant. No rebound. Extremities: No edema, no cyanosis, no calf tenderness. Neurologic: The patient is alert and oriented x4. No focal neurologic deficits noted. LABORATORIES: White blood cell count 19, hemoglobin 11, hematocrit 34, platelets 273,000. Sodium 137, potassium 4.5, chloride 106, CO2 17, BUN 42, creatinine 2.1, glucose 156. AFP 8962. Chest x-ray shows low lung volumes. ASSESSMENT AND PLAN: 1. Abdominal pain. The patient's appendix was not fully visualized on the CT and she is still having pain and has a persistently elevated white blood cell count. General Surgery is following. We will continue with antibiotic therapy. Endoscopy is also planned by GI. 2. Liver mass. The patient's alpha fetoprotein is 8962. This is concerning for hepatocellular carcinoma. The patient will need a liver biopsy. GI is following. 3. Chronic kidney disease stage 3. Stable. Will avoid nephrotoxic agents. Nephrology is following. 4. Metabolic acidosis. We will continue to monitor the patient's acid-base status closely. 5. Insulin dependent diabetes mellitus type 2. Improved. Continue on the current insulin regimen. 6. Leukocytosis. Unchanged. The workup is in progress. Infectious Disease has been consulted. We will continue on Zosyn for now. 7. Iron deficiency anemia. The patient's hemoglobin and hematocrit are stable. 8. Gastrointestinal prophylaxis. Continue on Protonix. 9. Deep vein thrombosis prophylaxis. The patient is on SCDs. cc: MD MADELEINE Masters
--- NOTE | 2018-05-24 12:20 | Diag Imaging Result Doc PS360 ---
SHOULDER-RIGHT - 05/24/2018 INDICATION: pain TECHNIQUE: Two views COMPARISON: None FINDINGS: Bones are intact and normally aligned. There is mild degeneration of the acromioclavicular and glenohumeral joint. There is also some moderate degenerative spurring of the acromion process and humeral head. IMPRESSION: Degenerative changes of the shoulder. Electronically signed by Markos Bravo 05/24/2018 12:18 PM
[2018-05-24] MEDS ORDERED: TYLENOL PO PRN (16:10)
--- NOTE | 2018-05-24 16:18 | INFECTIOUS DISEASE CONSULT REP ---
DATE: 05/24/2018 CONCLUSION: The patient has a leukocytosis. She was found on ultrasound to have a 3.4 cm mass in the right lobe of the liver and her AFP is very elevated at 8962. This could mean that she has a primary liver cancer. She does have pain in the right shoulder, but I think this could be referred pain from whatever is happening in the right upper quadrant. At this time I do not find any definite evidence of appendicitis. RECOMMENDATIONS: I agree with treating the patient with Zosyn. She states she feels better since she has been on Zosyn. I agree with Dr. Cole that it would be very reasonable to do laparoscopy and biopsy the liver. DISCUSSION: The patient tells me that starting 5 days ago she has had pain in the right upper quadrant of her abdomen. There is also pain in the shoulder. She said she had fever. Today she tells me that the pain is less and she is not having fever. As mentioned above, the AFP was 8962 and the patient continues to have a leukocytosis. Her CBC today shows a white count of 19,520, hemoglobin 11.1 and platelet count 273,000. Creatinine is 2.1. The GFR is 24. The alkaline phosphatase is 120. Blood and urine cultures are negative. X-ray of the right shoulder shows degenerative joint disease. Chest x-ray shows clear lungs. CT scan of the abdomen and pelvis showed no acute disease. Ultrasound of the abdomen shows a 3.4 cm mass lesion in the right lobe of the liver. PRESENT ILLNESS: The patient continues to have leukocytosis. There possibly may be some type of infection causing her liver mass or possibly the mass could be a malignancy complicated by an infection. PAST MEDICAL HISTORY/REVIEW OF SYSTEMS: Eyes and Ears: She denies trouble hearing or seeing. Neck: No stiffness. Respiratory: No cough or shortness of breath. Cardiac: No chest pain or palpitations. Genitourinary: No dysuria or flank pain. Gastrointestinal: No nausea, vomiting or diarrhea. Bones/Joints/Muscles: Patient is complaining of pain in the right shoulder as mentioned above. Endocrine: Patient is a diabetic, but she does not have thyroid disease. Integument: No rashes. [employer] ATTENDANT HISTORY: She is a 2, para 1, AB 1. She delivered her child by . PREVIOUS HOSPITALIZATIONS AND OPERATIONS: She has had a , a miscarriage, cholecystectomy, and surgery on her right ear. MEDICAL DISEASES: Positive for diabetes mellitus and hypertension. INFECTIOUS DISEASE HISTORY: Positive for urinary tract infection. FAMILY HISTORY: Positive for diabetes mellitus, asthma and hypertension. SOCIAL HISTORY: The patient is . She lives in [place]. She does not smoke cigarettes, drink alcoholic beverages or abuse drugs. ALLERGIES: She has no known drug allergies. MEDICATIONS: Taken at home include the following: Colace, insulin and lisinopril. PHYSICAL EXAMINATION: Vital Signs: Temperature is 99.5, pulse 105, respirations 20, blood pressure 154/66. General: This is a somewhat ill-appearing elderly female. She is in no acute distress. Head, Eyes, Ears, Nose and Throat: She can hear my spoken words and see near objects. No drainage noted from the nose or ears. There was no white coating to the tongue. Neck: No meningismus. Bones/Joints/Muscles: Movement of the right shoulder did not cause the patient to have any pain. The shoulder was not swollen. Abdomen: There was minimal right upper quadrant tenderness, but no guarding. The rest the abdomen was soft and nontender. Neurologic: Patient is alert. She can move her extremities. There is no tremor. Her memory as regarding her medical history seemed to be intact. Integument: No rash noted. Thank you for the consult. cc: Magdi Villa MD
[2018-05-24] MEDS: DILAUDID IV PRN (22:51)
--- NOTE | 2018-05-25 02:54 | PROGRESS NOTE ---
DATE: 05/24/2018 SUBJECTIVE: Ms. Hinkle was walking in the hallway and she feels a little better. Abdominal pain and right shoulder pain have improved to some degree. OBJECTIVE: Her white count remains elevated. Her alkaline phosphatase level was significantly elevated, suggestive of a possible hepatoma. IMPRESSION: Abnormal imaging suggestive of tumor or lesion in the liver. Further definitive diagnosis pending. PLAN: I would recommend to proceed with a colonoscopy and rule out a primary lesion there. If the colonoscopy is negative, she will need a CT-guided biopsy of the liver lesion and further plans will be made according to the results. This lesion may be resectable. I have explained the findings and plan to the patient as well as her son. Findings and plans were explained. They understood and agreed. cc: Ru Huang MD
[2018-05-25] MEDS: ZOSYN 2.25 GM in NS 50 ML IV SCH ×2 (02:57→09:23)
[2018-05-25] MEDS: NS 1,000 ML IV SCH ×3 (04:43→09:18)
--- NOTE | 2018-05-25 06:24 | GENERAL SURGERY PROGRESS NOTE ---
DATE: 05/25/2018 SUBJECTIVE: The patient seems to be doing better, not having as much pain. OBJECTIVE: Vital Signs: The patient is currently afebrile. Her vital signs are stable. General Examination: No acute distress. HEENT: Normocephalic, atraumatic. Pupils equal, round, reactive to light. Mucous membranes moist. Oropharynx benign. Neck: Supple. Trachea midline. Cardiovascular: Regular rate and rhythm. Lungs: Grossly clear. Abdomen: Soft. Some discomfort in the right side but no peritoneal signs. Extremities: Moves all extremities. Neurologic: Grossly intact. Skin: No signs of jaundice. Vascular: All extremities perfused. Laboratory: Reviewed from yesterday. Of note, her alpha fetoprotein is elevated at almost 9000. ASSESSMENT/PLAN: A 68-year-old female with persistent right-sided pain and a chronic liver mass. 1. Persistent pain. At this time, etiology is unclear. I do not think it is appendicitis. Her pain has improved since admission. We will hold off on any surgical intervention at this time. 2. Liver mass. At this time, workup is still underway. It is concerning that it might be some kind of malignancy but we will see what gastroenterology has to say. May need to get a CT- guided liver biopsy. cc: Rey Dumas MD
[2018-05-25] MEDS: HUMULIN R SUBQ SCH ×2 (06:27→11:32)
[2018-05-25 06:44] LABS: BASO# 0.01 X1000 (0.0-0.2); BASO% 0.1 % (0.0-0.8); EOS# 0.07 X1000 (0.0-0.7); EOS% 0.7 % (0.0-10.0); HEMATOCRIT 32.6 % (37.0-47.0); HEMOGLOBIN 10.6 g/dL (12.0-16.0); IMM GRAN# 0.03 X1000 (0.0-0.04); IMM GRAN% 0.3 % (0.0-0.5); LYMPH% 18.8 % (20.5-51.1); MCHC 32.5 g/dL (33-37); MONO# 0.83 X1000 (0.11-0.59); MONO% 7.8 % (1.7-9.3); MPV 12.2 FL (7.4-10.4); NEUT# 7.72 X1000 (1.4-6.5); NEUT% 72.3 % (42.2-75.2); PLT 171 X1000 (130-400); RBC 3.93 XMIL (4.2-5.4); RDW 14.5 % (11.5-14.5); WBC 10.66 X1000 (4.8-10.8)
[2018-05-25] MEDS: PROTONIX IV SCH (06:59)
[2018-05-25 07:09] LABS: ALB/GLOB RATIO 0.7; ALBUMIN 2.7 g/dL (3.5-5.0); CREATININE 1.9 mg/dL (0.5-0.9); POTASSIUM 4.2 mmol/L (3.5-5.1); TOTAL BILIRUBIN 0.63 mg/dL (0.20-1.00); TOTAL PROTEIN 6.8 g/dL (6.3-8.3)
[2018-05-25] MEDS: MIRALAX PO SCH (07:59)
[2018-05-25] MEDS: COLACE PO SCH (08:00)
[2018-05-25] MEDS: NORVASC PO SCH (08:00)
[2018-05-25] MEDS: LACTULOSE PO SCH (08:00)
--- NOTE | 2018-05-25 09:00 | HEMO/ONC CONSULTATION ---
DATE: 05/25/2018 PATIENT PROFILE: A 68-year-old female. CHIEF COMPLAINT/REASON FOR CONSULTATION: We have been consulted for further evaluation of the patient's liver mass with an elevated alpha-fetoprotein. HISTORY OF PRESENT ILLNESS: Ms. Hinkle is a 68-year-old female who presented to the emergency department on 05/22/2018 complaining of right lower quadrant pain, fever, and leukocytosis. The patient said the pain and fever began 2 days prior to coming to the emergency room. The patient denies any nausea, vomiting, or diarrhea at that time. The patient denied any other symptoms. While in the emergency room, the patient was found to have a white blood cell count of 9.79. CT of the abdomen and pelvis at that time showed a possible short segment of the appendix and appendicitis could not be entirely excluded at that time. General surgery was consulted, which they do not think that acute appendicitis was the problem at the time because the CT was not very convincing. The patient also has elevated liver enzymes and further workup is being performed by gastroenterology for that. The patient was also, since being admitted, found to have an elevated alpha-fetoprotein level of 8962. She also has a slightly elevated CEA of 4.7. The patient does have a known chronic liver mass as well. PAST MEDICAL HISTORY: Diabetes mellitus type 2 and hypertension. PAST SURGICAL HISTORY: section, cholecystectomy, and an ear surgery. ALLERGIES: No known drug allergies. SOCIAL HISTORY: She denies any alcohol, tobacco, or illicit drug use. FAMILY HISTORY: Noncontributory. HOME MEDICATIONS: Colace, Novolin 70/30, lisinopril. REVIEW OF SYSTEMS: Negative unless mentioned in the HPI. PHYSICAL EXAMINATION: Vital Signs: Temperature 98.4 degrees, heart rate 84, respiratory rate 14, blood pressure 180/71, saturating 100% on room air. General: The patient is awake, lying in bed. No acute distress noted. HEENT: Anicteric. Pupils PERRLA. Mucous membranes appear to be moist. Neck: Supple. Trachea midline. No JVD noted. Lymph Node Survey: No palpable lymphadenopathy. Cardiovascular: S1 and S2. Regular rate and rhythm. Chest: Bilateral breath sounds clear to auscultation. Abdomen: Soft. Bowel sounds present in all 4 quadrants. Tenderness to the right lower quadrant on palpation. No hepatosplenomegaly noted. Skin: Warm, dry and intact. No petechiae. No clubbing. No rash. No cyanosis. Neurologic: Alert and oriented x3. No focal deficits noted. LABORATORY DATA: White blood cell count is 10.66, hemoglobin 10.6, hematocrit 32.6, platelets are 171,000. Potassium 4.2, BUN 34, creatinine 1.9. AST 45, ALT 70, alkaline phosphatase 112. Alpha- fetoprotein tumor marker is 8962. CEA is 4.7. RADIOLOGY RESULTS: Abdomen and pelvis CT showed chronic liver mass. Appendix is not clearly visible. Abdominal ultrasound showed cholecystectomy, nonspecific hypodense lesion or mass in the right lower lobe of the liver, approximately 3.4 cm, and then the small kidneys with cortical thinning on the left. Chest x-ray showed low lung volumes but otherwise nothing acute. Right shoulder x-ray showed degenerative changes of the shoulder. ASSESSMENT AND PLAN: 1. Abdominal pain: General surgery continues to follow. The patient is also being followed by gastroenterology. Endoscopy is being planned by gastroenterology. Continue to follow per their recommendations at this time. 2. Liver mass: The patient's alpha-fetoprotein is 8962. This is concerning for hepatocellular carcinoma. The patient will need a liver biopsy. Continue to monitor. 3. Chronic kidney disease: Stable. Continue further recommendations by the primary medical team. 4. Diabetes mellitus: Aware. Continue further recommendations by primary medical team. 5. Leukocytosis: White blood cell count continues to improve. Today, it is 10.62. Continue to monitor and continue recommendations by the primary medical team. 6. Anemia: Hemoglobin is 10.6, hematocrit 32.6. Continue to monitor at this time. 7. Gastrointestinal prophylaxis: Continue proton pump inhibitor as per primary medical team. 8. Deep venous thrombosis prophylaxis: Continue sequential compression devices and MIRANDA hose. Continue to have patient get out of bed as much as possible. Plan of care was discussed with Dr. Nobles. Dictated by HANNAH Preciado for Rigoberto Nobles MD cc: HANNAH Preciado MD [facility]
[2018-05-25] MEDS: DILAUDID IV PRN (09:22)
--- NOTE | 2018-05-25 09:57 | NEPHROLOGY PROGRESS NOTE ---
DATE: 05/25/2018 SUBJECTIVE: The patient is sitting up in bed. She has been able to eat. No complaints today. OBJECTIVE: Vital Signs: Temperature 98.4 degrees, pulse 84, respiratory rate 14, blood pressure 180/71. Intake 2 L. Output was not measured, although the patient states that she has voided numerous times over the last 24 hours. Physical Examination: General: This is a middle-aged female, sitting up in bed. She is awake and alert. She is in no acute distress. HEENT: Normocephalic, atraumatic. Her oral mucosa is moist. Dentition fair. Tongue is midline. Neck: Supple. There is no JVD noted. Cardiovascular: Regular rate and rhythm. There is no murmur or gallop appreciated. Pulmonary: She has equal excursion. She is clear bilaterally. Abdomen: Soft, with positive bowel sounds. Does have continued tenderness to the right lower quadrant. : Not inspected. She is voiding. Extremities: Trace lower extremity edema. No clubbing or cyanosis. She is ambulatory without assistance. Integumentary: Skin is warm and dry. Lab Data: WBC of 10.6, hemoglobin 10.6. Sodium 134, potassium 4.2, CO2 18, creatinine 1.9. ASSESSMENT AND PLAN: 1. Chronic kidney disease stage IIIB. Her renal functions remain at her historical baseline. She has been worked up by hematology/oncology and has a planned liver biopsy in the near future. From a renal perspective, we have nothing to add to her current plan. We will continue to monitor her closely while she remains in the hospital. 2. Electrolytes, acid-base balance. These are acceptable. 3. Hypertension, slightly elevated. She has not received her morning medications yet. She is on Norvasc and Apresoline currently. She normally takes lisinopril at home. This has been held. From a renal standpoint, this can be restarted. Dictated by HANNAH Holloway for Dani Zafar MD Face to face encounter, data reviewed, discussed with Guero Harrington on 05/25/18. I agree with the above assessment and plan of care. cc: Dani Zafar MD [facility]
[2018-05-25] MEDS: HUMULIN 70/30 SUBQ SCH (10:00)
[2018-05-25 11:17] VITALS: BP 152/73
--- NOTE | 2018-05-25 18:20 | PROGRESS NOTE ---
DATE: 05/25/2018 SUBJECTIVE: Patient states her pain has improved some. So far, workup showed elevated alpha- fetoprotein tumor marker 8962, CEA 4.7, hepatitis profile was nonreactive, KINDRA screen was negative. OBJECTIVE: Vital Signs: Temperature 98 degrees, pulse 89, respirations 20, blood pressure 152/73. General: Patient is awake, alert, no acute distress. LABORATORY: Hematology. WBC 10.66, hemoglobin 10.6, hematocrit 32.6, MCV 83.0. Chemistry. Sodium 136, potassium 4.6, chloride 106, CO2 18, BUN 42, creatinine 2.0, glucose 134, AST 50, ALT 101, alkaline phosphatase 106. CEA 4.7, alpha fetoprotein tumor marker 8962. ASSESSMENT AND PLAN: 1. Abdominal pain improved. 2. Elevated liver function tests. 3. Abnormal CT scan showing a nonspecific hypodense lesion/mass in the right lobe of the liver. 4. Recommend colonoscopy for further evaluation. Further plans will be made according to findings. Since patient is doing well she can have this as an outpatient. I have spoken with hospitalist who was okay with patient to be discharged and we will schedule her colonoscopy as an outpatient on Friday. Further plans will be made as needed. Depending on colonoscopy findings patient may require a liver biopsy for further workup. I have discussed this case with Dr. Huang. Patient voices understanding of this plan. I have discussed the colonoscopy procedure. She will come by our office and get scheduled. Dictated by HANNAH Dunham for Ru Huang MD cc: HANNAH Bazzi MD
--- NOTE | 2018-05-31 05:17 | DISCHARGE SUMMARY ---
ADMISSION DATE: 05/21/2018 DISCHARGE DATE: 05/25/2018 FINAL DISCHARGE DIAGNOSES: 1. Liver mass with elevated alpha-fetoprotein. 2. Chronic kidney disease stage 3. 3. Unspecified abdominal pain. 4. Insulin-dependent diabetes mellitus type 2. 5. Metabolic acidosis. 6. Leukocytosis. 7. Iron deficiency anemia. 8. Hypertension. CONSULTATIONS: 1. General surgery with Dr. Dumas. 2. ID consultation with Dr. Villa. 3. Nephrology consultation with Dr. Zafar. 4. Oncology consultation with Dr. Nobles. 5. GI consultation with Dr. Huang. IMAGING PERFORMED DURING THIS HOSPITAL STAY: 1. CT of the abdomen and pelvis performed on 05/21/2018 that revealed no acute disease. 2. Abdominal ultrasound performed on 05/21/2018 that revealed a hypodense lesion mass in the right lobe of the liver that measures 3.4 cm. 3. Chest x-ray performed on 05/23/2018 that revealed low lung volumes. 4. Shoulder x-ray performed on 05/24/2018 that revealed degenerative changes of the shoulder. HOSPITAL COURSE: Ms. Hinkle is a 68-year-old female with a history of diabetes and chronic kidney disease, who presented to the ER with a chief complaint of abdominal pain and fever. On admission, a CT of the abdomen and pelvis was done that was unremarkable. However, there was concern about possible appendicitis so the patient was admitted to the hospitalist service and general surgery was consulted. The patient was noted to have a leukocytosis of 19,000. As a result, the patient was made NPO. IV fluids were initiated, as well as IV antibiotic therapy. Of note, the patient was noted to have elevated LFTs with AST of 234 and an ALT of 234. Also, the alkaline phosphatase was elevated at 162. It was recommended by general surgery that the patient be treated conservatively with IV fluids and IV antibiotics. It was thought that this did not represent acute appendicitis. An abdominal ultrasound was done that revealed a 3.5 cm mass in the right lobe of the liver. As a result of the elevated LFTs and the abdominal ultrasound findings, GI was consulted. After being seen by GI, they also ordered a CEA and an AFP. Due to the patient's elevated white count, infectious disease was consulted who recommended continuing antibiotic therapy. Ultimately, the AFP came back at 8962 and the CEA was noted to be elevated at 4.7. In light of these findings, it was recommended by GI that the patient undergo a colonoscopy and later follow that up with a liver biopsy. Over the course of the hospitalization, the patient's symptoms improved and it was recommended by GI that the patient be discharged and follow up as an outpatient to undergo the colonoscopy and liver biopsy. The patient was in agreement with this plan of action. The patient, on the day of discharge, was noted to have a white count of 10,000, and was able to tolerate her diet without any difficulty. Also, her LFTs had improved. The patient has an appointment with Dr. Huang on 06/10/2018 to undergo further diagnostic testing. The patient will also follow up with Dr. Nobles as an outpatient once the biopsy results are available from the liver biopsy. DISCHARGE MEDICATIONS: 1. Colace 100 mg p.o. twice a day. 2. Lisinopril 20 mg p.o. daily. 3. NPH 15 units subcutaneous daily. 4. NPH 18 units subcutaneous at bedtime. DISCHARGE DIET: An 1800, ADA diet. ACTIVITY: As tolerated. FOLLOWUP INSTRUCTIONS: The patient will need to follow up with Dr. Huang as scheduled on 06/10/2018. The patient will then follow up with Dr. Nobles as scheduled by his clinic once the results of the liver biopsy are available. cc: Anna Palacios MD
== END 2018-05-25 15:32 | disposition home or self-care (01) | DRG 392 ==
LOC: P.ED 18:30 → SUATTDRO 05-22 00:44 → 4N 05-22 00:44
PROVIDERS: ATTEND Internal Medicine
CPT/HCPCS: 36415; 71010; 71045; 73030; 74176; 76700; 80048; 80053; 80069; 80074; 80076; 81001; 82105; 82378; 82570; 82728; 82948; 83036; 83540; 83550; 83930; 83935; 84156; 84300; 85025; 85651; 86038; 86039; 86140; 87040; 87088; 87205; 96361; 96374; 96375; 99285; A9270; C9113; J1170; J1815; J2270; J2405; J2543; J7030; S0164; XXXXX

== ENCOUNTER 2019-08-03 13:41 | Inpatient (IN) ==
[2019-08-03 16:02] LABS: BASO# 0.03 X1000 (0.0-0.2); BASO% 0.5 % (0.0-0.8); EOS# 0.56 X1000 (0.0-0.7); EOS% 9.2 % (0.0-10.0); HEMATOCRIT 30.9 % (37.0-47.0); HEMOGLOBIN 9.7 g/dL (12.0-16.0); LYMPH% 14.9 % (20.5-51.1); MCH 26.4 PG (27-31); MCHC 31.4 g/dL (33-37); MCV 84.2 FL (81-99); MONO# 0.64 X1000 (0.11-0.59); MONO% 10.6 % (1.7-9.3); MPV 12.5 FL (7.4-10.4); NEUT# 3.93 X1000 (1.4-6.5); NEUT% 64.8 % (42.2-75.2); PLT 93 X1000 (130-400); RBC 3.67 XMIL (4.2-5.4); RDW 15.4 % (11.5-14.5); WBC 6.06 X1000 (4.8-10.8)
--- NOTE | 2019-08-03 16:24 | Diag Imaging Result Doc PS360 ---
EXAM: ABDOMEN FLAT/UPRIGHT INDICATION: pain TECHNIQUE: 2 views COMPARISON: 09/23/2014 FINDINGS: There are nonspecific patchy bowel gas and stool patterns. There may be slight increased stool throughout the colon. This could indicate mild constipation. There is no obstructive bowel pattern. There is no evidence of large volume free abdominal gas. Cholecystectomy clips and metallic vascular coils in the right upper quadrant are noted. IMPRESSION: Questionable mild constipation. Electronically signed by Too Giang 08/03/2019 4:22 PM
[2019-08-03] MEDS: ANUSOL-HC SUPP PR SCH (16:25)
--- NOTE | 2019-08-03 16:25 | Diag Imaging Result Doc PS360 ---
EXAM: CHEST-1 VIEW INDICATION: SOB TECHNIQUE: One view COMPARISON: 06/22/2019 FINDINGS: Inspiration is suboptimal. The lungs are grossly clear. There is no discrete pleural fluid collection or pneumothorax. The cardiomediastinal silhouette and central vasculature are grossly unremarkable. IMPRESSION: Somewhat low lung volumes. No definite acute chest pathology by plain radiograph, otherwise. Electronically signed by Too Giang 08/03/2019 4:22 PM
[2019-08-03 16:30] LABS: CALCIUM 10.6 mg/dL (8.8-10.2); CREATININE 1.5 mg/dL (0.5-0.9); POTASSIUM 4.5 mmol/L (3.5-5.1)
[2019-08-03 16:47] LABS: URINE SOURCE CLEAN CATCH
[2019-08-03 16:52] LABS: BILIRUBIN URINE NEGATIVE (NEGATIVE); BLOOD URINE NEGATIVE (NEGATIVE); COLOR YELLOW; GLUCOSE URINE NEGATIVE (NEGATIVE); KETONE URINE NEGATIVE (NEGATIVE); LEUKOCYTES URINE MODERATE (NEGATIVE); NITRITE URINE NEGATIVE (NEGATIVE); PH URINE 6.5; PROTEIN URINE TRACE mg/dL (NEGATIVE); SP GRAVITY URINE 1.016; TURBIDITY URINE CLEAR (CLEAR); UROBILINOGEN URINE NORMAL (NORMAL)
[2019-08-03 16:53] LABS: UR EPITHELIAL CELLS <10 /HPF (<10); URINE BACTERIA NEGATIVE /HPF; URINE RBC <10 /HPF (<10); URINE WBC 20-40 /HPF (<10)
[2019-08-03] MEDS: NITROGLYCERIN SL PRN (19:30)
[2019-08-03] MEDS ORDERED: IMDUR PO ONE (20:36)
[2019-08-03] MEDS: COREG PO SCH (20:59)
[2019-08-03] MEDS: AMBIEN PO SCH (20:59)
[2019-08-03] MEDS: LIPITOR PO SCH (20:59)
[2019-08-03] MEDS: HUMULIN R SUBQ SCH (21:00)
[2019-08-03] MEDS: COLACE PO SCH (21:00)
[2019-08-03] MEDS: ULTRAM PO PRN (21:06)
[2019-08-03] MEDS: PERI MEDS (DERMOPLAST/NUPERCAINAL/TUCKS) MISC PRN (21:20)
--- NOTE | 2019-08-03 21:22 | HISTORY AND PHYSICAL ---
CHIEF COMPLAINT: Rectal pain since 5 days ago. HISTORY OF PRESENT ILLNESS: She is a 69-year-old [place] female recently went to the emergency room with rectal pain. She had found a thrombosed hemorrhoid. Sent home on medical treatment. She failed to improve and came to my office with low-grade fever. Rectal pain. Upon examination, a small thrombosed hemorrhoid protruding in the center of the rectum. I am not able to do the rectal exam due to severe pain and a lot of stool around it. Basically admitted to the hospital for control of the pain, probably hemorrhoidectomy. Because of the comorbid conditions, patient is being hospitalized. I spoke to Dr. Keene this afternoon and consulted. He is going to examine tomorrow morning. PAST MEDICAL HISTORY: 1. CAD, 3 vessel disease, stent in the right coronary artery, seen by Dr. Hernandez. 2. Right bundle branch block. 3. Chronic renal failure creatinine 1.9. 4. Diabetes. 5. Acid reflux disease. 6. Hepatocellular cancer. 7. Hypertension. PAST SURGICAL HISTORY: 1. Right mastoidectomy. 2. Appendectomy. 3. Cholecystectomy. 4. Right orthodoxy excision of basal cell cancer. 5. x1. 6. Stent in the RCA. ALLERGIES: Reported none. MEDICATIONS: Colace 100 p.o. b.i.d., lisinopril 5 mg daily, Novolin 70/30 18 in the evening, 15 in the morning. Tramadol as needed. Hydrocortisone cream and suppositories. Lipitor 40 daily, calcitriol 0.25 daily, Coreg 6.25 p.o. b.i.d., Ambien 5 at bedtime, isosorbide 30 mg daily, multivitamin 1 tablet daily. SOCIAL HISTORY: She is for 43 years, 1 kid, disabled. No smoking, no drugs, no alcohol abuse. Living in [place]. FAMILY HISTORY: Father at the age of 75 from asthma. Mom is still alive. HEALTH MAINTENANCE: Flu vaccine in 2019. Mammography 2018. Colonoscopy May [address] Huang. REVIEW OF SYSTEMS: HEENT: No headache. No vision problem. No earache. No sore throat. Neck: No goiter. No lymphadenopathy. No bruit. Cardiopulmonary: No chest pain, no PND, no orthopnea. GI: No constipation. No nausea, vomiting, abdominal pain. Rectal pain. Extremities: No swelling of legs. Neurologic: No focal symptoms or weakness. OBJECTIVE: Temperature is 98 degrees, pulse 62, blood pressure 144/78. 5 feet 4, 140 pounds.HEENT: Atraumatic, normocephalic. Pupils equal, react to light. TMs are normal. Nose and throat within normal limits. Neck: Supple. No lymphadenopathy. No goiter. Chest: Bilateral air entry. Heart: Sounds are regular. Abdomen: Belly is soft, nontender. Good bowel sounds. Rectal Exam: A lot of stool with a thrombosed hemorrhoid noted. Neurological: No obvious neurological deficits. INVESTIGATIONS: Chest x-ray somewhat low lung volumes. No definitive acute pathology noted. KUB nonspecific ileus, questionable mild constipation. LABS: CBC white cell count 6, hematocrit 30, platelets 93,000. Sodium 135, potassium 4.5, BUN 38, creatinine 1.5. ASSESSMENT AND PLAN: 1. A 69-year-old, [place] descent who came in with the chief complaint of thrombosed hemorrhoids, unable to improve. Plan is sitz bath, Dibucaine cream, hydrocortisone suppository, surgical consult. 2. Coronary artery disease with 3 vessel disease status post stent in the RCA under the care of Dr. Hernandez, currently on aspirin, isosorbide 30 mg daily in light of reduction LV function. Patient has been on Coreg and lisinopril. 3. Chronic kidney disease, stable. Creatinine 1.9. 4. Nonalcoholic steatohepatitis with hepatocellular cancer, under the care of Dr. Nobles on Nexavar. 5. Vitamin D deficiency on replacement. 6. Constipation, on MiraLAX as directed. 7. Type 2 diabetes with complications and on insulin. We will hold on and we will use the sliding scale with insulin coverage. 8. Hyperlipidemia on Lipitor. 9. Abnormal EKG with right bundle. 10. Chronic insomnia on Ambien 5 mg at bedtime. 11. Will follow up on the clinical course. cc: Ian Dubois MD
[2019-08-04] MEDS: HUMULIN R SUBQ SCH ×4 (06:15→21:00)
[2019-08-04] MEDS: ROCALTROL PO SCH (08:47)
[2019-08-04] MEDS: ANUSOL-HC SUPP PR SCH (08:47)
[2019-08-04] MEDS: COLACE PO SCH ×2 (08:48→19:51)
[2019-08-04] MEDS: PRINIVIL PO SCH (08:48)
[2019-08-04] MEDS: ASPIRIN PO SCH (08:48)
[2019-08-04] MEDS: IMDUR PO SCH (08:48)
[2019-08-04] MEDS: COREG PO SCH ×2 (08:48→19:52)
[2019-08-04] MEDS: THERA M PLUS PO SCH (08:49)
[2019-08-04] MEDS: MIRALAX PO SCH (08:50)
[2019-08-04] MEDS ORDERED: ROCALTROL PO SCH (09:00)
[2019-08-04] MEDS ORDERED: XYLOCAINE-MPF 2% ONE (09:58)
[2019-08-04] MEDS ORDERED: DIPRIVAN 1% ONE (09:58)
[2019-08-04] MEDS ORDERED: MARCAINE 0.25% PF/EPI 1:200,000 ONE (10:09)
[2019-08-04] MEDS ORDERED: XYLOCAINE 1% ONE (10:09)
[2019-08-04] MEDS ORDERED: NUPERCAINAL ONE (10:09)
[2019-08-04] MEDS ORDERED: ROBINUL ONE (10:17)
--- NOTE | 2019-08-04 10:25 | GENERAL SURGERY CONSULTATION ---
DATE: 08/04/2019 REASON FOR CONSULTATION: Thrombosed/strangulated internal hemorrhoid. CHIEF COMPLAINT: Perianal pain. HISTORY OF PRESENT ILLNESS: This is a 69-year-old female who has multiple medical problems, coronary artery disease, treated with medical management. She has nonalcoholic steatohepatitis with hepatocellular carcinoma but apparently not claudia cirrhosis. Diabetes, gastroesophageal reflux disease, hypertension, and a right bundle branch block. She is a patient of Dr. Maloney and has been managed over the last 2 weeks for severe perianal pain and thrombosed/strangulated hemorrhoids. She has tried multiple medical regimens including stool softeners, sitz baths, topical agents, all to no avail. She is in excruciating pain. She says she has even tried to sleep standing up. Bowel function, for the most part, has been normal. She has no history of incontinence. She has had no other prior anorectal procedures. She did have a colonoscopy with Dr. Huang in 2019. She was told that she had hemorrhoids that would ultimately need to be dealt with but they continued to manage this medically and has done well until the last 2 weeks. SURGICAL HISTORY: She has had a right mastoidectomy, appendectomy, cholecystectomy, section, and a right coronary artery stent. She also has had excision of methodist basal cell carcinoma. SOCIAL HISTORY: She has been for 43 years. Does not smoke. No drugs. No alcohol. She lives in [place]. FAMILY HISTORY: Reviewed. REVIEW OF SYSTEMS: Ten point negative other than what is mentioned in the HPI. PHYSICAL EXAMINATION: She is afebrile, pulse 61, blood pressure 100/44, oxygen saturation is 97%. General: She is alert. No acute distress other than just generally uncomfortable, lying on her side. HEENT: There is no scleral icterus. No cervical mass. Cardiovascular: Normal rate. Pulmonary: No increased work of breathing. Abdomen: Soft. There are no varicosities. There are no fluid waves. It is nontender and nondistended. Integument: Warm and dry without jaundice. Psychiatric: Appropriate affect. Neurologic: No gross deficits. No asterixis. Lymphatic: No cervical, axillary, or inguinal adenopathy. Rectal Examination: Shows a thrombosed, prolapsing, strangulated with ulceration and likely early necrotic type changes to an internal hemorrhoid. There was some smaller, more non-thrombosed adjacent hemorrhoidal tissue as well. LABORATORY DATA: White count 6, hematocrit 30. Creatinine is 1.5, glucose has been as high as 300. Leukocytes moderate. I reviewed her chest and her abdominal x-ray. ASSESSMENT AND PLAN: This is a 69-year-old female with severe symptoms related to a thrombosed, strangulated internal hemorrhoid. She has failed a 2 week attempt at medical management. Given the appearance and the fact that this is more of a strangulated internal hemorrhoid, I do not think any attempt at a bedside procedure or drainage would benefit the patient. I also worry with her liver disease that there is possibly some degree of portal hypertension causing this, although she is well compensated currently and has never had any ascites and has no varicosities on her abdominal examination. I have discussed this with Dr. Dubois. She also has a coronary history, which further complicates the matter. When she is in severe pain, she seems to get anxious and this does cause her some angina type symptoms. She is admitted purely for pain control related to this. Factoring all these decisions in and her failure of nonoperative management, I have recommended going to the operating room for excisional hemorrhoidectomy to promote resolution and allow her to be managed as an outpatient for this issue. We discussed the risks of bleeding, infection, recurrence, damage to surrounding structures, worse incontinence, or anal stricture. She understands all this and consents. We will go the operating room today. I have talked to Dr. Dubois. cc: MD Ian Riddle MD
[2019-08-04] MEDS ORDERED: KEFZOL 1 GM/D5W 1 GM/50 ML IVPB IV ONE (10:37)
[2019-08-04] MEDS ORDERED: KEFZOL 1 GM/D5W 1 GM/50 ML IVPB ONE (10:40)
[2019-08-04] MEDS ORDERED: SODIUM CHLORIDE 0.9% 10 ML ONE ×2 (10:41→10:52)
[2019-08-04] MEDS ORDERED: NEO-SYNEPHRINE ONE (10:41)
[2019-08-04] MEDS ORDERED: ZOFRAN ONE (10:52)
[2019-08-04] MEDS ORDERED: MORPHINE ONE (10:58)
--- NOTE | 2019-08-04 16:26 | OPERATIVE NOTE ---
PROCEDURE DATE: 08/04/2019 PREOPERATIVE DIAGNOSIS: Strangulated internal hemorrhoid, prolapsed internal hemorrhoid on the left POSTOPERATIVE DIAGNOSIS: Strangulated internal hemorrhoids, prolapsed internal hemorrhoid on the left. PROCEDURE PERFORMED: Excisional hemorrhoidectomy. ESTIMATED BLOOD LOSS: 10 mL. SPECIMENS: Hemorrhoid. ANESTHESIA: General with local. INDICATIONS: A 69-year-old female who has had severe perianal pain for the last two weeks. Failed medical management. FINDINGS: On exam, she was found to have a strangulated, prolapsing internal hemorrhoid with ulceration and early necrosis. OPERATIVE FINDINGS: There was in the left, slightly anterior location, a pedunculated prolapsing, strangulated and thrombosed hemorrhoid with early ischemia. The other columns were prominent but were not thrombosed, not ulcerated. OPERATIVE NOTE: Risks, benefits and alternatives were discussed with the patient and she consented to the procedure. She was seen preoperatively and surgical site was confirmed. She was taken operating room and placed in supine position. General anesthesia was induced. She was then placed in candy-cane lithotomy position. The perineum was prepped with Betadine and draped in usual fashion. After time-out, a digital rectal examination was performed. There was soft stool in the rectal vault. A Eastman speculum was introduced and we identified the area of strangulated hemorrhoid. We placed a hemostat on this and planned elliptical incision excising this in its entirety, back to cauterizing the pedicle and then ligating it with a [id number] 3-0 Vicryl. We closed the mucosa with a running stitch with care to protect the muscularis and the sphincter complex. Hemostasis was noted. An ischial and perianal block was performed. She tolerated this well. ABD and mesh panty was applied. She has awoken and transferred to recovery. There is no family available. cc: MD Ian Riddle MD
--- NOTE | 2019-08-04 16:46 | PROGRESS NOTE ---
DATE: 08/04/2019 SUBJECTIVE: The patient's pain is a little better, but still a lot of pain. PHYSICAL EXAMINATION: Vital Signs: Temperature is 98 degrees. Vitals are stable. Chest: Clear. Heart: Sounds are regular. Abdomen: Belly is soft, nontender. No ascites. Rectal: Still has external thrombosed hemorrhoid, strangulated. ASSESSMENT AND PLAN: 1. Perirectal pain due to thrombosed internal hemorrhoids. It could be related to underlying nonalcoholic steatohepatitis. Waiting to be seen by Dr. Keene. Continue on symptomatic medical treatment. 2. Coronary artery disease. Pain-free. Continue present treatment. 3. Hepatocellular cancer, on Nexavar, stable. 4. Chronic kidney disease, stable. Based on Dr. Keene, further reports will be followed. LEVEL OF DOCUMENTATION: 25 minutes. cc: Ian Dubois MD
[2019-08-04] MEDS: ULTRAM PO PRN (19:51)
[2019-08-04] MEDS: AMBIEN PO SCH (19:52)
[2019-08-04] MEDS: LIPITOR PO SCH (19:52)
[2019-08-05] MEDS: COREG PO SCH ×3 (03:20→21:28)
[2019-08-05] MEDS: COLACE PO SCH ×3 (03:20→21:28)
[2019-08-05] MEDS: AMBIEN PO SCH ×2 (03:20→21:28)
[2019-08-05] MEDS: LIPITOR PO SCH ×2 (03:21→21:28)
[2019-08-05] MEDS: HUMULIN R SUBQ SCH ×4 (06:49→21:27)
[2019-08-05] MEDS ORDERED: LEVAQUIN PO ONE (07:39)
[2019-08-05] MEDS: MIRALAX PO SCH (08:36)
[2019-08-05] MEDS: ASPIRIN PO SCH (08:36)
[2019-08-05] MEDS: THERA M PLUS PO SCH (08:36)
[2019-08-05] MEDS: ROCALTROL PO SCH (08:36)
[2019-08-05] MEDS: IMDUR PO SCH (08:37)
[2019-08-05] MEDS: PRINIVIL PO SCH (08:37)
[2019-08-05] MEDS: ANUSOL-HC SUPP PR SCH (08:37)
--- NOTE | 2019-08-05 12:24 | GENERAL SURGERY PROGRESS NOTE ---
DATE: 08/05/2019 SUBJECTIVE: She feels much better. She has been treated for a urinary tract infection. She is having some bowel function. I do not think she has had a bowel movement. ASSESSMENT AND PLAN: This is a female with strangulated hemorrhoids, status post hemorrhoidectomy, doing better. Still having some pain, being treated for a urinary tract infection. We will defer management to Dr. Dubois. Otherwise, I can see her in 1 week in followup as an outpatient. We will continue to see her while she is here. cc: MD Ian Riddle MD
--- NOTE | 2019-08-05 18:08 | PROGRESS NOTE ---
DATE: 08/05/2019 SUBJECTIVE: The patient is a little better. Appreciated Dr. Keene's help. She has a fever. She has a UTI. OBJECTIVE: Vital signs: Temperature is 97 degrees. Vitals are stable. Physical exam, no change. ASSESSMENT AND PLAN: 1. Status post hemorrhoidectomy. 2. Urinary tract infection due to Escherichia coli, started on Levaquin and will continue to follow up. If stable will discharge in the morning. LEVEL OF DOCUMENTATION: Twenty-five minutes. cc: Ian Dubois MD
[2019-08-05] MEDS: ULTRAM PO PRN (20:04)
[2019-08-06] MEDS: HUMULIN R SUBQ SCH ×4 (06:54→20:29)
[2019-08-06] MEDS: PRINIVIL PO SCH (08:26)
[2019-08-06] MEDS: COREG PO SCH ×2 (08:26→20:11)
[2019-08-06] MEDS: THERA M PLUS PO SCH (08:26)
[2019-08-06] MEDS: MIRALAX PO SCH (08:26)
[2019-08-06] MEDS: IMDUR PO SCH (08:26)
[2019-08-06] MEDS: ROCALTROL PO SCH (08:26)
[2019-08-06] MEDS: ASPIRIN PO SCH (08:27)
[2019-08-06] MEDS: COLACE PO SCH ×2 (08:27→20:11)
[2019-08-06] MEDS: ANUSOL-HC SUPP PR SCH (08:27)
[2019-08-06] MEDS ORDERED: LEVAQUIN PO SCH (09:00)
[2019-08-06] MEDS ORDERED: LASIX IV ONE (09:25)
[2019-08-06] MEDS ORDERED: LACTULOSE PO ONE (10:21)
--- NOTE | 2019-08-06 12:56 | GENERAL SURGERY PROGRESS NOTE ---
DATE: 08/06/2019 SUBJECTIVE: Doing okay. She had not had a bowel movement yet. She says she is nervous because of the pain, but I have encouraged her to try. No fevers. No tachycardia. ASSESSMENT AND PLAN: A 69-year-old female status post hemorrhoidectomy for strangulated hemorrhoid. I will defer disposition to Dr. Dubois, but from a medical surgical perspective, she can go home. cc: MD Ian Riddle MD
--- NOTE | 2019-08-06 15:17 | PROGRESS NOTE ---
DATE: 08/06/2019 SUBJECTIVE: The patient is doing better, constipated, swelling of legs, low-grade fever. PHYSICAL EXAMINATION: Temperature is 98 degrees. Vitals are stable.HEENT: Within normal limits. Belly is soft, nontender. Urine cultures positive for Escherichia coli. ASSESSMENT AND PLAN: 1. Status post hemorrhoidectomy for internal hemorrhoids, translated. 2. Urinary tract infection. 3. Swelling. Plan of care is Levaquin IV, lactulose for constipation. 4. IV Lasix. Continue present treatment. If stable, will discharge in the morning. LEVEL OF DOCUMENTATION: 25 minutes. cc: Ian Dubois MD
[2019-08-06] MEDS: NITROGLYCERIN SL PRN (19:53)
[2019-08-06] MEDS: AMBIEN PO SCH (20:11)
[2019-08-06] MEDS: LIPITOR PO SCH (20:11)
[2019-08-06] MEDS: LACTULOSE PO SCH (20:11)
[2019-08-06] MEDS: ULTRAM PO PRN (20:11)
--- NOTE | 2019-08-06 22:02 | EKG Report ---
Test Performed on : 08/06/2019 9:12:05 PM Test Reason : chest pain Blood Pressure : / mmHG Vent. Rate : 070 BPM Atrial Rate : 070 BPM P-R Int : 144 ms QRS Dur : 118 ms QT Int : 406 ms P-R-T Axes : 035 -39 041 degrees QTc Int : 438 ms Normal sinus rhythm. Left axis deviation Right bundle branch block Inferior infarct (cited on or before 22-JUN-2019) Anterior infarct , age undetermined Abnormal ECG When compared with ECG of 22-JUN-2019 09:03, (Unconfirmed) Anterior infarct is now present ST now depressed in Anterior leads Nonspecific T wave abnormality now evident in Lateral leads Confirmed by Cruzito Felton MD ([id number]) on 08/07/2019 5:47:04 PM
[2019-08-07] MEDS: HUMULIN R SUBQ SCH ×4 (06:19→21:16)
[2019-08-07] MEDS: PRILOSEC PO SCH (06:20)
--- NOTE | 2019-08-07 07:25 | GENERAL SURGERY PROGRESS NOTE ---
DATE: 08/07/2019 SUBJECTIVE: Patient had a little bit of episode of chest pain yesterday. EKG was relatively normal. Troponin high-sensitive was 49. The patient is doing okay right now. OBJECTIVE: Vital signs: Patient is currently afebrile. Her vital signs are stable. General exam: No acute distress. Cardiovascular: Regular rate and rhythm. Lungs: Grossly clear. Abdomen: Abdomen soft, nontender. Rectal exam: At this time deferred, but the patient says she is feeling better. ASSESSMENT AND PLAN: A 69-year-old female status post hemorrhoidectomy for strangulated hemorrhoid. 1. Postoperative state at this time. Clinically, she seems to be doing okay. From a surgical point of view, she did have some chest pain. We will defer to her primary care physician about that. 2. Chest pain. At this time, electrocardiogram was okay. We will defer further workup to her primary care physician. cc: MD Ian Dominguez MD
[2019-08-07] MEDS: MIRALAX PO SCH (08:57)
[2019-08-07] MEDS: ROCALTROL PO SCH (08:58)
[2019-08-07] MEDS: IMDUR PO SCH (08:58)
[2019-08-07] MEDS: THERA M PLUS PO SCH (08:58)
[2019-08-07] MEDS: PRINIVIL PO SCH (08:58)
[2019-08-07] MEDS: LACTULOSE PO SCH ×2 (08:58→20:59)
[2019-08-07] MEDS: COREG PO SCH ×2 (08:58→20:58)
[2019-08-07] MEDS: COLACE PO SCH ×2 (08:58→20:58)
[2019-08-07] MEDS: ANUSOL-HC SUPP PR SCH ×2 (09:00→09:10)
[2019-08-07] MEDS: LEVAQUIN 250 MG/D5W 250 MG/50 ML IVPB IV SCH (09:01)
[2019-08-07] MEDS: ASPIRIN PO SCH (09:14)
--- NOTE | 2019-08-07 12:23 | PROGRESS NOTE ---
DATE: 08/07/2019 SUBJECT: Apparently patient has some chest pain. EKG has chronic changes, nothing acute. Troponin T was slightly high. Cardiac enzymes were negative. She has known history of CAD, on medical management. Currently pain free. No shortness of breath. VITAL SIGNS: Temperature is 97 degrees, pulse 55. Vitals are stable, on room air 100%. PHYSICAL EXAMINATION: Chest: Clear. Heart: Sounds are regular, decreased edema. ASSESSMENT: 1. Coronary artery disease with existing heart disease. 2. Status post hemorrhoidectomy. 3. Urinary tract infection. 4. Edema. 5. Chronic kidney disease. 6. Hepatocellular cancer. PLAN: Plan of care is to continue her on aspirin, isosorbide, nitroglycerin. For urinary tract infection, Levaquin 250 daily. Continue on Lasix. Continue on beta blockers. For constipation patient was given lactulose with some good results. We will hold the discharge. Continue to monitor. LEVEL OF DOCUMENTATION: 25 minutes. cc: Ian Dubois MD
[2019-08-07] MEDS: LIPITOR PO SCH (20:58)
[2019-08-07] MEDS: ULTRAM PO PRN (20:58)
[2019-08-07] MEDS: AMBIEN PO SCH (20:58)
[2019-08-07] MEDS: PERI MEDS (DERMOPLAST/NUPERCAINAL/TUCKS) MISC PRN (21:00)
[2019-08-08] MEDS: PRILOSEC PO SCH (06:19)
[2019-08-08] MEDS: HUMULIN R SUBQ SCH ×4 (06:21→20:58)
--- NOTE | 2019-08-08 07:13 | GENERAL SURGERY PROGRESS NOTE ---
DATE: 08/08/2019 The patient is doing a little bit better. She did not have a full episode of chest pain last night. She seems to be overall doing a little bit better. We will defer discharge to her primary care physician. She can follow up with Dr. Keene in the office if she does get discharged. cc: MD Ian Dominguez MD
[2019-08-08] MEDS: ASPIRIN PO SCH (09:09)
[2019-08-08] MEDS: PRINIVIL PO SCH (09:09)
[2019-08-08] MEDS: IMDUR PO SCH (09:10)
[2019-08-08] MEDS: THERA M PLUS PO SCH (09:10)
[2019-08-08] MEDS: ROCALTROL PO SCH (09:10)
[2019-08-08] MEDS: COREG PO SCH ×2 (09:10→21:00)
[2019-08-08] MEDS: COLACE PO SCH ×2 (09:10→21:00)
[2019-08-08] MEDS: MIRALAX PO SCH (09:11)
[2019-08-08] MEDS: LEVAQUIN 250 MG/D5W 250 MG/50 ML IVPB IV SCH (09:11)
[2019-08-08] MEDS: LACTULOSE PO SCH ×2 (09:12→21:01)
[2019-08-08] MEDS: ANUSOL-HC SUPP PR SCH (09:13)
--- NOTE | 2019-08-08 12:38 | PROGRESS NOTE ---
DATE: 08/08/2019 SUBJECTIVE: The patient is getting better. No chest pain. Ambulating well. No fever. OBJECTIVE: Temperature is 98 degrees. Vitals are stable. Physical exam shows no change. Blood sugar is 200. ASSESSMENT AND PLAN: 1. Chest pain with existing heart disease, stable on present treatment. 2. Urinary tract infection, Escherichia coli. Intravenous Levaquin. 3. Edema, better. 4. Hemorrhoidectomy, stable. 5. Hepatocellular cancer on Nexavar Continue on present treatment, and if she is stable in the next 24 hours, will discharge in the morning. LEVEL OF DOCUMENTATION: 25 minutes. cc: Ian Dubois MD MTDD
[2019-08-08] MEDS: PERI MEDS (DERMOPLAST/NUPERCAINAL/TUCKS) MISC PRN (20:59)
[2019-08-08] MEDS: ULTRAM PO PRN (20:59)
[2019-08-08] MEDS: LIPITOR PO SCH (21:00)
[2019-08-08] MEDS: AMBIEN PO SCH (21:00)
[2019-08-08] MEDS: NITROGLYCERIN SL PRN (21:26)
[2019-08-09] MEDS: PRILOSEC PO SCH (06:29)
[2019-08-09] MEDS: HUMULIN R SUBQ SCH ×4 (06:31→20:56)
--- NOTE | 2019-08-09 06:46 | GENERAL SURGERY PROGRESS NOTE ---
DATE: 08/09/2019 Patient seems to be doing a little bit better. It does not seem like she has had as much chest pain. She is still having some discomfort in her bottom which seems appropriate given the hemorrhoidectomy. From a surgical point of view, okay to discharge once okay with her primary care physician. cc: MD Ian Dominguez MD
[2019-08-09] MEDS: THERA M PLUS PO SCH (09:12)
[2019-08-09] MEDS: COLACE PO SCH ×2 (09:12→20:56)
[2019-08-09] MEDS: ROCALTROL PO SCH (09:12)
[2019-08-09] MEDS: PRINIVIL PO SCH (09:12)
[2019-08-09] MEDS: MIRALAX PO SCH (09:12)
[2019-08-09] MEDS: IMDUR PO SCH (09:12)
[2019-08-09] MEDS: LACTULOSE PO SCH ×2 (09:12→20:55)
[2019-08-09] MEDS: COREG PO SCH ×2 (09:12→20:56)
[2019-08-09] MEDS: ASPIRIN PO SCH (09:13)
[2019-08-09] MEDS: ANUSOL-HC SUPP PR SCH (09:13)
[2019-08-09] MEDS: LEVAQUIN 250 MG/D5W 250 MG/50 ML IVPB IV SCH (09:13)
[2019-08-09] MEDS: ULTRAM PO PRN ×2 (09:31→21:03)
[2019-08-09] MEDS ORDERED: ZOFRAN IV PRN (11:12)
--- NOTE | 2019-08-09 17:43 | PROGRESS NOTE ---
DATE: 08/09/2019 SUBJECTIVE: The patient complains of chest pain and given a nitroglycerin pill. The rectal pain is improved. UTI symptoms are better. PHYSICAL EXAMINATION: Vital Signs: Temperature is 98 degrees. Vitals signs are stable. HEENT: Within normal limits. Neck: Supple. No lymphadenopathy. Chest: Bilateral air entry. Heart: Sounds are regular. Abdomen: Belly is soft, nontender. Good bowel sounds. ASSESSMENT AND PLAN: 1. Chest pain underlying coronary artery disease. I spoke to the patient. At this time, continue medical management as per Dr. Hernandez. Continue aspirin, nitroglycerin pill, isosorbide, beta blockers and the perirectal pain is improved. 2. Urinary tract infection. IV Levaquin and constipation. Continue on lactulose. If continues to be pain-free, will be discharged. LEVEL OF DOCUMENTATION: 25 minutes. cc: Ian Dubois MD MTDD
[2019-08-09] MEDS: AMBIEN PO SCH (20:55)
[2019-08-09] MEDS: LIPITOR PO SCH (20:56)
[2019-08-10] MEDS: HUMULIN R SUBQ SCH (06:16)
[2019-08-10] MEDS: PRILOSEC PO SCH (06:52)
[2019-08-10 07:50] VITALS: BP 110/56
[2019-08-10] MEDS: ROCALTROL PO SCH (09:15)
[2019-08-10] MEDS: COLACE PO SCH (09:15)
[2019-08-10] MEDS: THERA M PLUS PO SCH (09:15)
[2019-08-10] MEDS: LEVAQUIN 250 MG/D5W 250 MG/50 ML IVPB IV SCH (09:15)
[2019-08-10] MEDS: ANUSOL-HC SUPP PR SCH (09:15)
[2019-08-10] MEDS: ASPIRIN PO SCH (09:15)
[2019-08-10] MEDS: PRINIVIL PO SCH (09:16)
[2019-08-10] MEDS: COREG PO SCH (09:16)
[2019-08-10] MEDS: MIRALAX PO SCH (09:16)
[2019-08-10] MEDS: LACTULOSE PO SCH (09:16)
[2019-08-10] MEDS: IMDUR PO SCH (09:16)
--- NOTE | 2019-08-11 08:43 | DISCHARGE SUMMARY ---
ADMISSION DATE: 08/05/2019 DISCHARGE DATE: 08/10/2019 DISCHARGING DIAGNOSIS: Acute rectal pain due to strangulated thrombosed internal hemorrhoids. SECONDARY DIAGNOSES: 1. Urinary tract infection due to Escherichia coli. 2. Chest pain due to coronary artery disease with 3 vessel disease and stent in the right coronary artery. 3. Abnormal EKG with right bundle. 4. Chronic renal failure creatinine 1.9. 5. Type 2 diabetes. 6. Hepatocellular carcinoma under treatment. 7. Hypertension. CONSULTS: Dr. Slade Keene. PROCEDURES: Hemorrhoidectomy. BRIEF HISTORY: Please see the H and P that was done on 08/03/2019. In brief, she is a 69-year- old [place] immigrant was admitted to the hospital with severe rectal pain not able to improve as an outpatient treatment after she was seen in the emergency room 3 days prior to the admission. The patient has strangulated thrombosed internal hemorrhoids. HOSPITAL COURSE: The patient was given Sitz bath, hydrocortisone suppositories. Dr. Keene was consulted. He did on the following day, hemorrhoidectomy. Hospital course was prolonged due to fever due to UTI. It was present prior to the admission. The cultures grew E coli sensitive to Levaquin. The patient was given IV Levaquin. Postoperative course complicated by chest pain with existing heart disease. Recently, she had a catheterization and had a stent in the right coronary artery, seen by Dr. Hernandez just relegated to medical management. She is not a candidate for bypass surgery. The patient was given aspirin, nitroglycerin glycerin tablets, isosorbide and beta blockers. She also has mild pedal edema requiring IV Lasix. Subsequently, patient was stable, ambulating very well. LABS: CBC: White cell count 6, hematocrit 30, platelets 93,000. Sodium 133, potassium 4.5, BUN 30, creatinine 1.5. Urine cultures grew Escherichia coli. EKG showed right bundle branch block. Nothing acute. Follow up on cardiac enzymes were negative. The patient was also under Dr. 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 DISCHARGE INSTRUCTIONS: The patient was discharged home in stable condition with the following instructions. Colace 100 p.o. b.i.d., lisinopril 5 mg daily, insulin 70/30 15 units in the morning, 18 in the evening. Hydrocortisone cream as directed with suppositories, Lipitor 40 daily, calcitriol 0.25 mcg daily, Coreg 6.25 p.o. b.i.d., Ambien 5 at bedtime, aspirin 81 mg daily, and nitroglycerin as needed for chest pain. Lasix 40 mg daily Levaquin 250 daily for 7 days. FOLLOWUP: Follow up in my office in next week. cc: MD Dani Fernandez MD Ashish K. Basu, MD R. Tyler Harney, MD Naveen T. Lobo, MD
== END 2019-08-10 10:34 | disposition home health service (06) | DRG 348 ==
LOC: INTOOBSV 13:41 → DIRADM 13:41 → EDIPHOLD 14:54 → 1N 18:07
PROVIDERS: ADMIT Internal Medicine; ATTEND Internal Medicine
PROC: [UNRECOGNIZED PROCEDURE] (2019-08-04 10:44)